=== PATIENT | female | born 1955 | race Caucasian/White ===

== ENCOUNTER → 2023-08-27 11:45 | Outpatient (REF) | payer MEDICARE, OTHER, SELFPAY ==
[2023-08-27 12:40] LABS: % Basophils 0.7 % (0-2); % Eosinophils 3.2 % (0-6); % Immature Granulocytes 0.4 % (0-0.5); % Lymphocytes 42.4 % (20.5-51.1); % Monocytes 8.4 % (1.7-9.3); % Neutrophils 44.9 % (42.2-75.2); Absolute Eosinophils 0.2 10^3/uL (0-0.7); Absolute Lymphocytes 2.3 10^3/uL (1.2-3.4); Absolute Monocytes 0.5 10^3/uL (0.1-0.6); Absolute Neutrophils 2.4 10^3/uL (1.4-6.5); Hematocrit 38.6 % (37.0-47.0); Hemoglobin 12.9 g/dL (12.0-16.0); Mean Corp Hgb Conc. 33.4 g/dL (33.0-37.0); Mean Corpuscular Hgb 30.2 pg (27.0-31.0); Mean Corpuscular Volume 90.4 fL (81.0-99.0); Nucleated Red Blood Cells % 0 %; Platelet Count 623 10^3/uL (130-400); Red Blood Cell Count 4.27 10^6/uL (4.20-5.40); Red Cell Dist. Width 12.1 % (11.5-14.5); White Blood Cell Count 5.4 10^3/uL (4.8-10.8)
[2023-08-27 12:54] LABS: ALT (SGPT) 60 U/L (0-35); AST (SGOT) 50 U/L (14-36); Albumin 4.1 g/dl (3.5-5.0); Alkaline Phosphatase 245 U/L (38-126); Blood Urea Nitrogen 13 mg/dl (7-17); Calcium 10.1 mg/dl (8.4-10.2); Carbon Dioxide 26 mmol/L (22-30); Chloride 103 mmol/L (98-107); Glucose 102 mg/dl (70-99); Potassium 5.2 mmol/L (3.5-5.1); Sodium 136 mmol/L (135-145); Total Bilirubin 0.4 mg/dl (0.2-1.3); Total Protein 7.2 g/dl (6.3-8.2); eGFR > 60.00
[2023-08-27 13:25] LABS: TSH Reflex To Free T4 < 0.02 uIU/ml (0.47-4.68)
[2023-08-27 13:54] LABS: Free T4 2.16 ng/dl (0.78-2.19)
== END ==
LOC: REG 11:45
PROVIDERS: ATTENDING PHYSICIAN Family Medicine
DX: E03.9 Hypothyroidism, unspecified (principal); R79.89 Other specified abnormal findings of blood chemistry; D64.9 Anemia, unspecified
CPT/HCPCS: 36415; 80053; 84439; 84443; 85025

== ENCOUNTER → 2023-09-08 07:23 | Outpatient (REF) | payer MEDICARE, OTHER, SELFPAY | LOC: RAD 07:23 | PROVIDERS: ATTENDING PHYSICIAN Surgery; FAMILY PHYSICIAN Internal Medicine | DX: K57.32 Diverticulitis of large intestine without perforation or abscess without bleeding (principal) | CPT/HCPCS: 74177; Q9967 ==

== ENCOUNTER → 2023-09-12 09:46 | Outpatient (REF) | payer MEDICARE, OTHER, SELFPAY ==
[2023-09-12 11:05] LABS: LDH 171 U/L (120-246)
[2023-09-12 11:47] LABS: TSH Reflex To Free T4 < 0.02 uIU/ml (0.47-4.68)
[2023-09-12 12:12] LABS: Free T4 3.69 ng/dl (0.78-2.19)
[2023-09-12 12:52] LABS: CEA 94.1 ng/ml
[2023-09-14 18:44] LABS: CA 125 7.7 U/mL (0-35)
[2023-09-14 18:49] LABS: AFP Male/Tumor Marker 2.97 ng/ml
[2023-09-14 21:40] LABS: Estriol 0.23 ng/mL
[2023-09-14 22:30] LABS: CA 19-9 2 U/mL (<=35)
[2023-09-14 22:39] LABS: HCG Male/Tumor Marker 3 IU/L (0-5)
== END ==
LOC: REG 09:46
PROVIDERS: ATTENDING PHYSICIAN Surgery; FAMILY PHYSICIAN Internal Medicine
DX: R19.00 Intra-abdominal and pelvic swelling, mass and lump, unspecified site (principal); E03.9 Hypothyroidism, unspecified; R97.8 Other abnormal tumor markers; C22.1 Intrahepatic bile duct carcinoma
CPT/HCPCS: 36415; 82105; 82378; 82677; 83615; 84439; 84443; 84702; 86301; 86304

== ENCOUNTER → 2023-09-23 07:16 | Outpatient (REF) | payer MEDICARE, OTHER, SELFPAY | LOC: MRI 07:16 | PROVIDERS: ATTENDING PHYSICIAN Surgery; FAMILY PHYSICIAN Internal Medicine | DX: R19.00 Intra-abdominal and pelvic swelling, mass and lump, unspecified site (principal) | CPT/HCPCS: 72197; A9575 ==

== ENCOUNTER → 2023-09-24 07:32 | Outpatient (REF) | payer MEDICARE, OTHER, SELFPAY | LOC: HWRAD 07:32 | PROVIDERS: ATTENDING PHYSICIAN Internal Medicine | DX: R93.5 Abnormal findings on diagnostic imaging of other abdominal regions, including retroperitoneum (principal); K57.92 Diverticulitis of intestine, part unspecified, without perforation or abscess without bleeding; N70.92 Oophoritis, unspecified | CPT/HCPCS: 76830; 76856 ==

== ENCOUNTER → 2023-10-05 06:37 | Day surgery (SDC) | payer MEDICARE, OTHER, SELFPAY | LOC: GI 06:37 | PROVIDERS: ATTENDING PHYSICIAN Surgery | DX: K57.30 Diverticulosis of large intestine without perforation or abscess without bleeding (principal); R93.3 Abnormal findings on diagnostic imaging of other parts of digestive tract; D49.0 Neoplasm of unspecified behavior of digestive system; K56.690 Other partial intestinal obstruction | CPT/HCPCS: 45380; 45381; 88305 ==

== ENCOUNTER → 2023-10-06 08:35 | Outpatient (REF) | payer MEDICARE, OTHER, SELFPAY | LOC: RAD 08:35 | PROVIDERS: ATTENDING PHYSICIAN Surgery; FAMILY PHYSICIAN Internal Medicine | DX: R19.00 Intra-abdominal and pelvic swelling, mass and lump, unspecified site (principal) | CPT/HCPCS: 71260; Q9967 ==

== ENCOUNTER → 2023-10-19 11:51 | Outpatient (REF) | payer MEDICARE, OTHER, SELFPAY ==
[2023-10-19 14:12] LABS: % Basophils 0.6 % (0-2); % Eosinophils 1.5 % (0-6); % Immature Granulocytes 0.5 % (0-0.5); % Lymphocytes 31.5 % (20.5-51.1); % Monocytes 6.8 % (1.7-9.3); % Neutrophils 59.1 % (42.2-75.2); Absolute Eosinophils 0.1 10^3/uL (0-0.7); Absolute Monocytes 0.4 10^3/uL (0.1-0.6); Absolute Neutrophils 3.7 10^3/uL (1.4-6.5); Hemoglobin 12.4 g/dL (12.0-16.0); Mean Corp Hgb Conc. 32.6 g/dL (33.0-37.0); Mean Platelet Volume 9.6 fL (7.4-10.4); Nucleated Red Blood Cells % 0 %; Platelet Count 344 10^3/uL (130-400); Red Blood Cell Count 4.27 10^6/uL (4.20-5.40); Red Cell Dist. Width 13.5 % (11.5-14.5); White Blood Cell Count 6.2 10^3/uL (4.8-10.8)
[2023-10-19 14:51] LABS: TSH Reflex To Free T4 7.94 uIU/ml (0.47-4.68)
[2023-10-19 15:20] LABS: Free T4 0.44 ng/dl (0.78-2.19)
[2023-10-19 15:38] LABS: ALT (SGPT) 22 U/L (0-35); AST (SGOT) 26 U/L (14-36); Albumin 4.5 g/dl (3.5-5.0); Alkaline Phosphatase 115 U/L (38-126); Blood Urea Nitrogen 14 mg/dl (7-17); Calcium 9.9 mg/dl (8.4-10.2); Carbon Dioxide 26 mmol/L (22-30); Chloride 102 mmol/L (98-107); Glucose 78 mg/dl (70-99); Potassium 4.8 mmol/L (3.5-5.1); Sodium 135 mmol/L (135-145); Total Bilirubin 0.2 mg/dl (0.2-1.3); Total Protein 7.2 g/dl (6.3-8.2); eGFR > 60.00
== END ==
LOC: REG 11:51
PROVIDERS: ATTENDING PHYSICIAN Internal Medicine
DX: R19.00 Intra-abdominal and pelvic swelling, mass and lump, unspecified site (principal); I10 Essential (primary) hypertension; F33.9 Major depressive disorder, recurrent, unspecified; E03.9 Hypothyroidism, unspecified
CPT/HCPCS: 36415; 80053; 84439; 84443; 85025

== ENCOUNTER 2023-10-21 06:05 | Inpatient (IN) | payer MEDICARE, OTHER, SELFPAY ==
[2023-10-21] VITALS (15 sets, daily range): BP systolic 67–131; BP diastolic 37–84
[2023-10-21] MEDS: CELEBREX 200 MG PO (06:50)
[2023-10-21] MEDS: TYLENOL 1000 MG PO ×2 (06:51→18:04)
[2023-10-21] MEDS: NORMOSOL-R 1000 IV ×2 (06:51→15:39)
[2023-10-21] MEDS: HEPARIN 5000 UNITS SC (06:51)
--- NOTE | 2023-10-21 07:09 | W.SUR.PREOP ---
Pre-Operative Surgical Note
-
I have examined this patient prior to the performance of the scheduled procedure.
The patient's condition is unchanged from the time of the current History and
Physical and the patient is able to undergo the scheduled procedure.
[2023-10-21] MEDS: NEURONTIN 300 MG PO (07:10)
--- NOTE | 2023-10-21 10:14 | OR.RPT ---
Operative Report
Operative Report
Pre-op Diagnosis: Right lower quadrant mass, Elevated CEA
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
Procedure: Robotic assisted total laparoscopic hysterectomy, bilateral salpingo-oophorectomy, pelvic washings, resection of right paracolic gutter, partial omentectomy
Primary Surgeon: Krishna Yu
Assisting Surgeons: JITENDRA Hill
Specimen: Uterus, cervix, bilateral tubes and ovaries, right paracolic gutter, pelvic washing
Cultures: None
Complications / Blood Loss: None
Procedure in detail: This patient is brought to the operating room with Dr. Brown Calix from colorectal surgery. Her history significant for presumed diagnosis of diverticulitis, back in July which was treated with IV antibiotics, she had
a persistent mass on imaging studies, colonoscopy was performed no obvious luminal lesions were noted. I had seen her in consultation at colorectal surgery request, tumor markers were suggestive of elevated CEA and normal CA125.
we brought her to the operating room today for definitive management and resection of the mass. Upon arrival she was placed in supine position, general anesthesia was administered she was intubated without any difficulty. She was placed in
lithotomy position using yellowfin stirrups and prepped on the abdomen perineum and vagina. Rome catheter was inserted for bladder drainage. Both arms were wrapped with foam and properly tucked along the patient's side head and shoulders and eyes
were protected. Using Reynolds retractor the cervix was visualized, anterior lip of the cervix was grasped with single-tooth tenaculum, the cervix was dilated and sounded to 6-1/2 cm. Uterine manipulator manager wind type with 3 cm CHANTELLE ring was placed
in the uterine cavity and the vaginal occluder balloon was insufflated. Attention was turned abdominally, Veress needle was inserted into the umbilicus and pneumoperitoneum was accomplished to pressure of 15 mmHg. 8 mm robotic ports were placed in
the left upper quadrant midline right mid abdomen and right lateral abdomen and an additional port was placed in left lower quadrant. XI robotic system was docked. Survey of the upper abdomen reveals liver diaphragms gallbladder spleen left
diaphragm to be within normal limits, there are some scattered subcentimeter mucinous implants throughout the peritoneal cavity most of this was resected as part of the procedures listed below. There is a mass that is likely arising from appendix
involving the mesentery of sigmoid colon these 2 structures are densely adherent to each other and will likely require resection of sigmoid colon as well as ileocecal region for complete resection. In addition to her implants along the right and
left paracolic gutters and also in the soft tissue of the adnexa adjacent to the ovaries. The ovaries themselves were unremarkable similar implants are also present in the pelvic peritoneum and the posterior cul-de-sac. Washings were performed and
collected.
Round ligaments were sealed and divided bilaterally, anterior and posterior leaves of the broad ligament were dissected open retroperitoneal spaces were opened and the course of the ureter was outlined above the pelvic peritoneum and below the
pelvic peritoneum. We created a window between IP ligament and ureter and both IP ligaments were sealed 3 times, clips were applied for additional security before it was cut tubes and ovaries were left attached to the uterus. Bladder flap was
sharply developed and advanced below the cervicovaginal junction. Uterine arteries were skeletonized. We sealed both uterine arteries and then divided them, circumferential incision was made over the CHANTELLE ring until the specimen was completely
detached and this was removed through the vagina without any difficulty. A long portion of left paracolic gutter was removed and submitted also for frozen section. We also removed a portion of the omentum and left it attached to the colon for
future removal as part of the initial set up for the surgery. I went ahead and closed the vaginal cuff using a 2�0 V-Loc suture starting from right and coming to the left and both corners were securely closed and uterosacral ligaments were
incorporated for support. Good hemostasis was present and all pedicles.
Frozen section of paraovarian tissue as well as right and left paracolic implants reveals mucinous adenocarcinoma suspected to be an compatible with a GI primary. I turned the case over to Dr. Calix who will perform the remainder of the surgery and
a separate dictation will be made by him. Counts of labs instruments and needle was correct x 2. I was present and scrubbed for entire procedure as dictated above.
--- NOTE | 2023-10-21 13:49 | W.IMMPOSTOP ---
Surgical Immed Post Op Note
-
Primary Surgeon: Brown Calix MD
Assisting Surgeon: Kevin Ng MD, DADA Mustafa
Pre-op Diagnosis: Right pelvic mass
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
Procedure Performed: Robotic converted to open resection of right pelvic mass with en bloc sigmoidectomy and appendectomy, right hemicolectomy, flexible sigmoidoscopy, tap block, bilateral ureterolysis, partial omentectomy, robotic total abdominal
hysterectomy with bilateral salpingo-oophorectomy, peritoneal biopsy with washings, by Dr. Krishna Michel (to be dictated separately)
Anesthesia Type: General
Specimen / Cultures: Left gutter peritoneum, total abdominal hysterectomy with bilateral salpingo-oophorectomy, pelvic mass en bloc with sigmoid and appendix, right colon and terminal ileum
Estimated Blood Loss: 75 mL
Complications: None
Operative Findings: Abdominal entry with Veress; explored the abdomen and identified multiple small mucinous peritoneal deposits on the anterior abdominal wall and pelvis, identified right pelvic mass sitting above the sacral promontory with
adhesions to the omentum and invasion into the proximal sigmoid and distal sigmoid as well as some adhesion to the right adnexa; placed 4 robotic ports from Hill's point diagonally to the RLQ with a right lateral coding assistant port and an additional
left lateral port; patient in [address] Yu proceeded with taking down the adhesions from the mass to the omentum as well as the right adnexa; the ovaries appeared normal with possible tumor deposits on the right ovary; he
proceeded with a KRISTY/BSO; he excised a flap of peritoneum from the left paracolic gutter with multiple tumor deposits and sent the uterus with ovaries and peritoneum for frozen; he also performed peritoneal washings of the pelvis and sent for
cytology; pathology stated this was most likely an appendiceal mucinous neoplasia, favors adenocarcinoma; Dr. Yu closed to the vaginal cuff and I took over the controls; I attempted to dissected the cecum and appendix from the retroperitoneal
structures but this was sucked down; I attempted to elevate the sigmoid but the mass was tethering it down; I attempted to dissect inferior to the appendix of the of the presacral plane but this was also very difficult; I attempted to staple across
the base of the appendix in order to free the mass, but the angle for the stapler was too cute, I then divided the terminal ileum about 3 cm proximal to the involvement of the terminal ileum as well as divided the proximal sigmoid about 5 cm
proximal to the sigmoid involvement; I was able to elevate the mass and staple across the base of the appendix; I again attempted to elevate the sigmoid with mask to dissect inferiorly; the mass was clearly involving the SHEILA and was densely adherent
to the sacral promontory; anesthesia alerted us that the patient's CO2 was elevated; we decreased desufflation to 10 which slightly improved the hypercarbia; I scored the peritoneum along the right pelvis to a point just distal to the rectosigmoid
junction; I attempted to score the peritoneum in the left pelvis; however there was a tumor deposits that was difficult to dissect off of the left ureter; at this point, I felt the safest decision would be to convert to open; I undocked the robot
and made a midline incision from 1 cm above the umbilicus to her prior Pfannenstiel incision; I was able to finish my mobilization of the rectosigmoid and stapled across the proximal rectum with the contour stapler blue load; I used the impact
LigaSure to dissect the mass off of the presacral plane avoiding injury to the presacral venous plexus; I came across the SHEILA with the impact about 4 to 5 cm distal to its takeoff; at this point the specimen was free and passed off; Dr. Pk Ng
joined the case and we mobilized the right colon and evaluated the right colon mesentery; there was palpable lymphadenopathy, therefore I proceeded with a formal right hemicolectomy; I performed a partial omentectomy to include multiple palpable
nodules; I took down the lateral attachments and the hepatocolic ligament; I also palpated I picked a point at the proximal transverse colon and stapled across; I used the LigaSure to serially divided the mesentery for a wide lymphadenectomy and
continued this to my prior transection point of the terminal ileum, dividing the ileocolic pedicle; this was passed off as specimen; I proceeded with a [id number] stapled ileocolic antiperistaltic anastomosis and a end-to-end stapled EEA
colorectal anastomosis; Dr. Ng performed the flexible sigmoidoscopy and the anastomosis was intact with a negative leak test and 2 intact donuts; the abdomen was irrigated with 3.5 L of warm saline and hemostasis was assured; I injected 30 cc of
0.25% Marcaine with dexamethasone for tap block; closed in the usual fashion
--- NOTE | 2023-10-21 14:14 | OR.RPT ---
Operative Report
Operative Report
DATE OF OPERATION: 10/21/2023
SURGEON: Brown Calix MD
PREOPERATIVE DIAGNOSIS: Right pelvic mass
POSTOPERATIVE DIAGNOSIS:
OPERATION: Robotic converted to open resection of right pelvic mass with en bloc sigmoidectomy and appendectomy, right hemicolectomy, flexible sigmoidoscopy, TAP block, partial omentectomy; robotic total abdominal hysterectomy with bilateral
salpingo-oophorectomy with peritoneal biopsy and washings by Dr. Michelle Yu (to be dictated separately)
ASSISTANTS:
1. Kevin Ng MD
2. DADA Mustafa
ANESTHESIA: Geta
ESTIMATED BLOOD LOSS: 75 mL
UOP: 500 mL
IVF: 3.3 L
FINDINGS:
1. Right pelvic mass adherent to omentum, terminal ileum, appendix, and sigmoid colon; bilateral adnexa without direct involvement, but evident mucinous deposits on the ovaries and fallopian tubes
2. 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
3. Unable to dissect the pelvic mass from the presacral fascia and left ureter robotically; converted to open
4. Palpable lymphadenopathy within the mesentery of the right colon; performed a formal right hemicolectomy with [id number] stapled anastomosis
5. Reconstruction with stapled colorectal EEA anastomosis; donuts intact, leak test negative, anastomosis intact on flexible sigmoidoscopy
SPECIMENS:
1. Left paracolic gutter peritoneum
2. Hysterectomy and bilateral salpingo-oophorectomy
3. Pelvic mass with en bloc sigmoidectomy and appendectomy
4. Right colon with terminal ileum
DRAINS: None
COMPLICATIONS: No immediate complications.
INDICATIONS: The patient is a 68-year-old female who was initially diagnosed with perforated diverticulitis, treated nonoperatively and was discharged. However, on follow-up imaging, the inflammation resolved and the collection appeared more like
a malignant mass on the right side of the pelvis. An MRI was done which showed that the mass seemed to originate from the sigmoid colon. A transvaginal ultrasound showed that the mass was involving the right ovary. Colonoscopy was performed
preoperatively which showed extrinsic compression and possible invasion at 2 areas of the sigmoid, no obvious colon masses were noted. After discussion with Dr. Michelle Yu, we agreed that the next best step is to proceed with an operation for both
diagnosis and resection of this mass, whether it is of gynecologic origin or colonic origin. The operation was discussed with the patient in detail, including the risks, benefits and alternatives. Risks described included, but not limited to,
bleeding, infection, anastomotic leak if an anastomosis is created, ureteral injury, bowel or solid organ injury, urinary or sexual dysfunction, inability to complete the operation, inability to completely resect the mass, possibility of resection
of more colon or bowel than initially anticipated, need for an ostomy, conversion to open and anesthetic risks. The patient understood and agreed to proceed.
PROCEDURE IN DETAIL: The patient was taken to the operating room and placed on the operating table in supine position. Sequential compression devices were placed bilaterally. General anesthesia was then induced and the patient was intubated without
complication. The patient was then placed in lithotomy position with the bilateral arms tucked. Dr. Yu and his neurosurgical physician assistant prepped the perineum and placed a Rome. Anesthesia placed an orogastric tube. Preoperative antibiotics were given. The
abdomen was then prepped and draped in a sterile fashion. A marking pen was used to michelle out the midline. A time-out was then performed verifying the correct patient, procedure, operative site, positioning, and special equipment.
An 8 mm incision at Hill's point was made with an 11 blade scalpel. A Veress needle was used to gain abdominal access. After 3 clicks, the insufflation was connected to the Veress needle and the opening pressure was noted to be greater than 8
mmHg. I attempted to replace the Veress needle twice without improvement in opening pressure. Dr. Yu then attempted Veress needle entry through the umbilicus, which showed an opening pressure less than 8 mmHg. The abdomen was then insufflated
to a pressure of 12 mmHg. An 8 mm robotic trocar was then inserted at Hill's point. The robotic camera was advanced and intra-abdominal placement was confirmed. The abdomen was examined. No injuries were noted from port entry or from the Veress
needle. Immediately evident was the large right pelvic mass with adhesions to the omentum, sigmoid and right lower quadrant. Small subcentimeter mucinous nodules scattered throughout the abdomen were noted, primarily on the peritoneum of the right
paracolic gutter, bilateral adnexa, peritoneum of the anterior pelvis and left paracolic gutter. No concerning lesions were noted on the surface of the liver. The remaining three 8mm robotic ports were placed under direct visualization in a
diagonal fashion from Hill's point to the right lower quadrant, as well as an 8mm assist port in the right lateral mid abdomen, taking care to avoid injury to the right epigastric vessels. The left upper quadrant port was changed to the air seal
port. Dr. Yu first took the console and started to free up some of the adhesions to the omentum and small bowel, as well as the uterus, ovaries and fallopian tubes. It was clear that the mass was not originating from the ovaries or fallopian
tubes, however, there were mucinous deposits on each. He proceeded with his hysterectomy with bilateral salpingo-oophorectomy. Both ureters were easily visible during this portion of the case and were kept safe. He also took a flap of peritoneum
from the left paracolic gutter, which included multiple mucinous deposits. He performed peritoneal washings for cytology. He then walked the specimens to pathology for frozen section.
I took the console at this time and started to evaluate the involvement of the colon. There were dense adhesions to the sigmoid colon at 2 locations. It was evident that I would need to perform a sigmoidectomy en bloc. The rectum appeared
uninvolved. The mass was socked to the pelvic brim and retroperitoneum, making it difficult to elevate. The cecum was then freed from its lateral and retroperitoneal attachments and the base of the appendix was identified. It was clear that the
appendix was involved in the mass as the appendix disappeared into the mass and was not easily freed. The first segment of the terminal ileum also appeared densely adherent to the mass, about 7 to 10 cm proximal to the ileocecal junction. The
remainder of the small bowel was free from the mass. 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 Dr. Yu took the controls and finished his portion of the case, which involved closing
the vaginal cuff.
I then took the controls and continued attempting to free up the mass en bloc. In order to elevate the mass, I attempted to perform an appendectomy by creating a hole in the mesoappendix, but when I attempted to pass the 60 mm robotic stapler, the
angle was too acute. I then stapled and divided the terminal ileum about 3 cm proximal to the involvement of the mass (about 12 cm proximal to the IC valve), using the blue load of the 60 mm robotic stapler. I then identified a spot on the sigmoid
colon that was about 5 cm proximal to the involvement of the mass. I stapled and divided the sigmoid colon at this point in an attempt to help mobilize the mass. At this point, it was mobile enough to perform my intended appendectomy, which I
performed using the blue load of the 60 mm robotic stapler. I again attempted to dissect inferior to the mass. It was clearly involving the distal SHEILA and was adherent to the fascia overlying the sacral promontory. Anesthesia notified me that the
patient's CO2 was elevated. We decreased to the insufflation to 10 mmHg which improved the hypercarbia. I scored the peritoneum along the right pelvis to a point just distal to the rectosigmoid. I attempted to score the peritoneum in the left
pelvis, however, there were multiple tumor deposits that were difficult to dissect away from the area. The left ureter was easily visualized due to Dr. Yu's previous dissection. There was 1 tumor deposit that was on top of the left ureter. I
attempted to dissect this tumor deposit off the left ureter but encountered a small amount of bleeding. At this point, I felt the safest decision would be to convert to open as this mass was very difficult to dissect inferiorly as well as the
patient's hypercarbia, forcing us to decrease our insufflation and making visualization more difficult. A lap pad was placed in the left pelvis where the small amount of bleeding was noted near the tumor deposit. The robotic instruments were
removed and the robot was undocked. The patient was leveled.
I made a midline incision from 1 cm above the umbilicus down to her Pfannenstiel scar from a previous surgery. I took this down to the level of the fascia. Hemostasis was checked and assured with electrocautery. The linea alba was scored and the
peritoneum was elevated and incised with Metzenbaum scissors. The fascia and peritoneum were then opened to the same length of the skin incision. A large Antwan wound retractor was placed. The patient was placed in Trendelenburg position. I
checked the small amount of bleeding from the tumor deposit in the left pelvis. The bleeding had stopped. I was able to retract the tumor deposit and easily dissect it off the left ureter without injury to the ureter. I was then able to elevate
the mass and using the impact LigaSure device, I was able to dissect inferiorly, ligating the attachments off the presacral plane, avoiding injury to the presacral venous plexus. I identified the SHEILA. I dissected this circumferentially and divided
this with the impact about 4 to 5 cm distal from its takeoff. I divided the remainder of the sigmoid mesentery and the specimen was now free. I passed this off for pathology. My partner, Dr. Ng, joined the case due to the level of complexity
and difficulty. We evaluated the operative field and the pelvis, and hemostasis was assured. We assessed the right colon. We divided the lateral attachments of the right colon in order to elevate it and inspected the mesentery. There was
palpable lymphadenopathy in the mesentery of the right colon. Therefore, I felt proceeding with a formal right hemicolectomy would be the best decision for the patient's long-term cancer care. I took the lateral attachments down along the right
colon and hepatic flexure, taking care to avoid injury to the liver. I then entered the lesser sac at the mid transverse colon and divided the gastrocolic ligament proximally to my previous dissection, completely freeing the right colon and hepatic
flexure. I bluntly freed up the colon mesentery from the retroperitoneum, avoiding injury to the kidney and ureter. At the recommendation of Dr. Yu, I performed a partial omentectomy to include any palpable or concerning nodules. I did this
with the LigaSure device. I then picked a point at the proximal transverse colon and stapled and divided at this point. I used the LigaSure to serially divide the mesentery for a wide lymphadenectomy and continued this to my prior transection
point of the terminal ileum. I identified the ileocolic pedicle during this part and this was divided with the LigaSure. I then passed off my right hemicolectomy specimen. I proceeded with a [id number] stapled ileocolic antiperistaltic
anastomosis. I used Allis clamps to grasp the antimesenteric corners of the staple lines and a curved James's to create a colotomy and enterotomy. I passed the HERLINDA 80 mm purple load stapler device and created my stapled common channel. The staple
line was evaluated and was hemostatic. The common enterotomy was aligned using Allis clamps and stapled with a TA stapler. The staple line was evaluated and was hemostatic. I then turned my attention to the sigmoid colon. Dr. Ng passed up
rectal EEA sizers, which passed easily. The sigmoid staple line was then excised using electrocautery and an EEA anvil was secured using a Prolene in a pursestring fashion. Dr. Ng then passed the EEA stapler transanally and extended the post
through the middle of the rectal staple line. I mated the sigmoid with anvil to the EEA stapler. There was no tension and the mesentery was not twisted. Dr. Ng then closed the stapler for 1 minute and fired, holding for 15 seconds. The EEA
was removed and both donuts were intact. A leak test was then done by filling the pelvis with saline and clamping proximal to the anastomosis with fingers. The flexible sigmoidoscope was passed transanally and the anastomosis was insufflated. No
bubbles were noted. The anastomosis appeared healthy and intact on sigmoidoscopy. The abdomen was then irrigated with 3.5 L of warm saline and the entire operative field was evaluated. Hemostasis was assured. I injected 30 mL of 0.25% Marcaine
with dexamethasone bilaterally in the transversus abdominis plane surrounding the midline incision. I reapproximated the fascia using #1 Prolene, starting at the corners and closing in a running fashion. The subcutaneous tissues were irrigated and
suctioned. The midline incision and port sites were closed with a skin stapler.
At this point, the procedure was complete. The patient was awoken and extubated without complication. All needle, sponge and instrument counts were reported as correct. The patient tolerated the procedure well and was transferred to the recovery
room in stable condition.
Of note, Kevin Ng MD, neurosurgical physician assistant, was necessary during this procedure for traction, countertraction, and exploratory purposes. I was present for the entire duration of the case.
DICTATED BY: Brown Calix MD
[2023-10-21 14:49] LABS: Glucose - Point of Care 156 mg/dl (70-99)
[2023-10-21] MEDS: TORADOL 15 MG IV ×2 (16:16→20:23)
[2023-10-21] MEDS: DILAUDID 0.25 MG IV (18:03)
--- NOTE | 2023-10-21 20:25 | PTCARENOTE ---
Received patient from PACU around 1600 via bed in stable condition. Patient was sleepy but arousable. Son at bedside. Patient and family oriented to room. Call wilson in reach.
[2023-10-22] VITALS (7 sets, daily range): BP systolic 94–123; BP diastolic 54–75; PULSE 86; O2SAT 95; BMI 27.0
[2023-10-22] MEDS: TYLENOL PO
[2023-10-22] MEDS: DILAUDID 0.5 MG IV ×2 (02:15→06:56)
[2023-10-22] MEDS: TORADOL 15 MG IV ×4 (03:47→20:06)
[2023-10-22 04:52] LABS: % Basophils 0.3 % (0-2); % Immature Granulocytes 0.3 % (0-0.5); % Lymphocytes 15.7 % (20.5-51.1); % Neutrophils 78.7 % (42.2-75.2); Absolute Monocytes 0.3 10^3/uL (0.1-0.6); Absolute Neutrophils 5.1 10^3/uL (1.4-6.5); Hematocrit 29.6 % (37.0-47.0); Hemoglobin 10.2 g/dL (12.0-16.0); Mean Corp Hgb Conc. 34.5 g/dL (33.0-37.0); Mean Corpuscular Hgb 29.4 pg (27.0-31.0); Mean Corpuscular Volume 85.3 fL (81.0-99.0); Mean Platelet Volume 9.2 fL (7.4-10.4); Nucleated Red Blood Cells % 0 %; Platelet Count 305 10^3/uL (130-400); Red Blood Cell Count 3.47 10^6/uL (4.20-5.40); White Blood Cell Count 6.5 10^3/uL (4.8-10.8)
[2023-10-22 05:26] LABS: Blood Urea Nitrogen 6 mg/dl (7-17); Calcium 7.8 mg/dl (8.4-10.2); Carbon Dioxide 23 mmol/L (22-30); Chloride 99 mmol/L (98-107); Estimated Creatinine Clearance 78 ml/min; Glucose 150 mg/dl (70-99); Magnesium 2.4 mg/dl (1.6-2.3); Potassium 3.4 mmol/L (3.5-5.1); Sodium 133 mmol/L (135-145); eGFR > 60.00
[2023-10-22] MEDS: SYNTHROID 125 MCG PO (06:12)
[2023-10-22] MEDS: TYLENOL 1000 MG PO ×3 (06:12→17:48)
[2023-10-22] MEDS: COZAAR PO (08:14)
[2023-10-22] MEDS: EFFEXOR XR 150 MG PO (08:14)
[2023-10-22] MEDS: ENTEREG 12 MG PO ×2 (08:14→19:56)
[2023-10-22] MEDS: DILAUDID 1 MG IV ×4 (09:34→19:56)
--- NOTE | 2023-10-22 10:13 | W.PN.CRS1 ---
Today's Communication / Plan
-
Increased pain medication
Fulls
DC Rome
Lovenox
Assessment/Plan
-
POD#1 Robotic converted to open resection of right pelvic mass with en bloc sigmoidectomy and appendectomy, right hemicolectomy, flexible sigmoidoscopy, tap block, bilateral ureterolysis, partial omentectomy, robotic total abdominal hysterectomy
with bilateral salpingo-oophorectomy, peritoneal biopsy with washings, by Dr. Krishna Michel (to be dictated separately)
1. Hypotensive postop but improved. Afebrile.
2. Potassium 3.4, hypokalemic. Will replete with 20 mEq potassium.
3. On a clear liquid diet. Advance diet to full's.
4. Out of bed as tolerated.
5. Start Lovenox tonight for DVT prophylaxis. Teds and SCDs in place.
6. OR pathology pending.
7. Increase Dilaudid IV. On Toradol and Tylenol standing. If she still is in pain, will consider DYE AND CHEMICAL COORDINATOR.
8. Discontinue Rome.
Subjective Data
Procedure
10/21/23- Robotic converted to open resection of right pelvic mass with en bloc sigmoidectomy and appendectomy, right hemicolectomy, flexible sigmoidoscopy, tap block, bilateral ureterolysis, partial omentectomy, robotic total abdominal hysterectomy
with bilateral salpingo-oophorectomy, peritoneal biopsy with washings, by Dr. Krishna Michel (to be dictated separately)
Subjective Data
Date of Service: October 22, 2023
Patient states she was in a lot of pain last night. She has no gas or bowel movements yet. She has been drinking clears. She has not been out of bed yet this morning.
Objective Data
-
Vital Signs
Temp Pulse Resp BP Pulse Ox
99.4 F 77 17 100/55 98
10/22/23 08:00 10/22/23 08:00 10/22/23 08:00 10/22/23 08:14 10/22/23 08:00
Intake & Output
10/21/23 10/22/23 10/23/23
06:59 06:59 06:59
Intake Total 1989
Output Total 1020 / 1020
Balance 970 / 970
Intake:
Oral fluids 480 / 480
IV fluids (Total) 1510 / 1510
Norm 100 / 100
Normosol-R 1,000 ml @ 50 mls/hr 75 / 75
IV .Q20H JOSE Rx#:[id number]
Output:
Urine, Rome 1020 / 1020
Other:
Number of unmeasured liquid
stools
Rectum 1
Lab Results
10/22/23 04:26
10/22/23 04:26
Physical Exam
-
General: No Acute Distress and AOx3
Abdomen: Soft, Non Distended and Non Tender
Incision: Clear, Dry, Intact
--- NOTE | 2023-10-22 10:25 | W.PN.ONC ---
Documented by User: Brant Garcia PA-C 10/22/23 10:34
Impression
Impression
recovering well from surgery
Plan
Plan
follow colorectal surgeon
Subjective/Objective
Subjective/Objective
Post op day 1 only complaints is pain no SOB nausea vomiting able to tolerate liquids
no vaginal bleeding vitals stable incision dry
Vital Signs:
Vital Signs
Temp Pulse Resp BP Pulse Ox
99.4 F 77 17 100/55 98
10/22/23 08:00 10/22/23 08:00 10/22/23 08:00 10/22/23 08:14 10/22/23 08:00
Lab Results:
Laboratory Data
WBC 6.5 10^3/uL (4.8-10.8) 10/22/23 04:26
Hgb 10.2 g/dL (12.0-16.0) L 10/22/23 04:26
Plt Count 305 10^3/uL (130-400) 10/22/23 04:26
eGFR > 60.00 10/22/23 04:26

Documented by User: Krishna Yu MD 10/22/23 17:02
Today's Communication / Plan
-
I have repeated the exam, reviewed findings and agree with presley.
[2023-10-22] MEDS: NORMOSOL-R 1000 IV (10:27)
[2023-10-22] MEDS: KCL 160 MEQ IV (10:46)
--- NOTE | 2023-10-22 12:01 | CM ---
Reviewed the chart notes and spoke with the patient at the bedside. The patient is s/p Robotic assisted total laparoscopic hysterectomy, bilateral salpingo-oophorectomy, pelvic washings, resection of right paracolic gutter, partial omentectomy.
The patient resides alone in a first floor apartment with two steps to enter. The patient reports no DME/VN/SNF in the past. The patient confirmed her pharmacy of choice is the [facility] [address] [place]. CM continues to be available to patient/family
and is monitoring medical plan for needs at discharge.
Plan: Discharge to home when medically stable. No anticipated needs identified at this time.
--- NOTE | 2023-10-22 14:37 | CON.ONC ---
Impression
Impression
Pelvic mass s/p robotic to open surgery with Dr. Yu
Acute post-operative pain
Unintentional weight loss ~10 lbs
Hypotension
Plan
Plan
POD#1 Robotic converted to open resection of right pelvic mass with en bloc sigmoidectomy and appendectomy, right hemicolectomy, flexible sigmoidoscopy, tap block, bilateral ureterolysis, partial omentectomy, robotic total abdominal hysterectomy
with bilateral salpingo-oophorectomy, peritoneal biopsy with washings
Follow CBC with diff daily
Pain management
Supportive care
OOB activity encouraged
Diet per colorectal surgery
Lovenox for DVT prophylaxis
Await pathology
[facility] notified of patient's clinical status.
Follow up with Dr. Sol to be arranged.
Patient History
History of Present Illness
Sangeeta Fenton is a 68 year old female known to Dr. Yu. In July 2023, she presented to the ER with complaints of abdominal pain x5 days, night sweats, unintentional weight loss of 15 lbs, and nausea. Imaging at the time showed a possible
abscess in the sigmoid colon due to acute diverticulitis which was not accessible to drain in IR. She was treated with IV antibiotics and discharged home with follow up imaging. Imaging two weeks later showed the inflammation surrounding the
questionable mass had subsided and the mass was thought to be possible ovarian or colon neoplasm measuring 5cm. She met with Dr. Yu in the office for consultation. She is currently POD#1 robotic converted to open resection of right pelvic mass
with en bloc sigmoidectomy and appendectomy, right hemicolectomy, flexible sigmoidoscopy, tap block, bilateral ureterolysis, partial omentectomy, robotic total abdominal hysterectomy with bilateral salpingo-oophorectomy, peritoneal biopsy with
washings. EBL: min.
Past-Medical/Surgical History
Diverticulosis/diverticulitis
Hx colon polyps
Hypertension
Hypothyroidism
Depression
Osteoarthritis
Former smoker (x 7 years; quit 1985)
Weekly ETOH 2-3 beers
Meniscus repair
Vein stripping
Patient Medication
�Medication �Instructions �Recorded �Confirmed �Last Taken �Type
venlafaxine 150 mg 150 mg PO DAILY Mental 12/07/19 10/21/23 10/20/23 05:00 History
capsule,extended release 24 hr Health/Anxiety
(Effexor XR)
losartan 25 mg tablet 25 mg PO DAILY Blood Pressure 08/17/23 10/21/23 10/20/23 05:00 History
erythromycin 500 mg tablet 500 mg PO PRE OP 10/20/23 10/21/23 10/20/23 22:00 History
levothyroxine 125 mcg tablet 125 mcg PO DAILY hypothyroidism 10/20/23 10/21/23 10/20/23 05:00 History
neomycin 500 mg tablet 1 g PO PRE OP 10/20/23 10/21/23 10/20/23 22:00 History
sodium sul 1.479 gram-potas ch 0 tab PO PRE OP 10/20/23 10/21/23 10/20/23 21:00 History
0.188 gram-magnes sul 0.225 gram
tablet (Sutab)
Active Medications
Generic Name Dose Route Start Last Admin
Trade Name Freq PRN Reason Stop Dose Admin
Acetaminophen 1,000 mg 10/21/23 18:00 10/22/23 11:58
Acetaminophen 500 Mg Tablet PO 11/18/23 17:59 1,000 mg
Q6 JOSE Administration
Alvimopan 12 mg 10/22/23 08:00 10/22/23 08:14
Alvimopan (Entereg) 12 Mg Capsule PO 10/28/23 20:01 12 mg
BID JOSE Administration
Enoxaparin Sodium 40 mg 10/22/23 18:00
Enoxaparin Sodium 40 Mg/0.4 Ml Syringe SC 11/19/23 17:59
QPM JOSE
Hydromorphone HCl 0.5 mg 10/22/23 09:30
Hydromorphone 0.5 Mg/0.5 Ml Syringe IV 11/04/23 09:29
Q4HPRN PRN
moderate pain
Hydromorphone HCl 1 mg 10/22/23 09:30 10/22/23 11:58
Hydromorphone 1 Mg/Ml Carpuject IV 11/05/23 09:29 1 mg
Q2HPRN PRN Administration
severe pain
Parenteral Electrolytes 1,000 mls @ 50 mls/hr 10/21/23 14:15 10/22/23 10:27
Normosol-R IV 1,000 mls
.Q20H JOSE Administration
Ketorolac Tromethamine 15 mg 10/21/23 15:00 10/22/23 08:13
Ketorolac 15 Mg/Ml Injection IV 10/26/23 14:59 15 mg
Q6H JOSE Administration
Levothyroxine Sodium 125 mcg 10/22/23 07:00 10/22/23 06:12
Levothyroxine 125 Mcg Tablet PO 11/19/23 06:59 125 mcg
DAILY AT 0700 JOSE Administration
Losartan Potassium 25 mg 10/22/23 08:00 10/22/23 08:14
Losartan 25 Mg Tablet PO 11/19/23 07:59 Not Given
DAILY JOSE
Ondansetron HCl 4 mg 10/21/23 14:17
Ondansetron 4 Mg/2 Ml Vial IV 11/18/23 14:16
Q6HPRN PRN
nausea/vomiting
Sodium Chloride 0 flush 10/21/23 06:00
Sodium Chloride 0.9% (Flush) Syringe IV 11/18/23 05:59
PER PROTOCOL JOSE
Venlafaxine HCl 150 mg 10/22/23 08:00 10/22/23 08:14
Venlafaxine 150 Mg Extended Release Capsule PO 11/19/23 07:59 150 mg
DAILY JOSE Administration
Review of Systems
-
History Source: Patient, Physician, Coordinated Provider and Records
Constitutional: Reports Weight Loss
EENT: Reports No Symptoms
Respiratory: Reports No Symptoms
Cardiac: Reports No Symptoms
GI: Reports Abdominal Pain
Breast: Reports N/A
: Reports No Symptoms
Musculoskeletal: Reports No Symptoms
Skin: Reports No Symptoms
Neuro: Reports No Symptoms
Endocrine: Reports No Symptoms
Hematologic/Lymphatic: Reports No Symptoms
Allergy / Immunology: Reports No Symptoms
Psych: Reports No Symptoms
Physical Exam
-
Patient is resting comfortably in bed. She states she just received IV pain medication and her pain is better controlled. She denies N/V. she is belching, no flatus. She has not yet been OOB as of 929 this morning during evaluation.
General: Well Developed, Well Nourished, No Apparent Distress, Comfortable and Conversant
HEENT: Negative Jaundice
Cardiology: S1 and S2
Pulmonary: Clear
GI: Other (hypoactive bowel sounds, midline incision with aquacell dressing CDI, old drainage. lap sites x4, small areas of ecchymosis, no drainage.)
Genito-Urinary: [place] (clear yellow urine)
Musculoskeletal: No Edema
Extremities: Pulses Present
Neurology: Non Focal
Skin: Warm and Dry
Psych: Calm
Labs
Lab Results
WBC 6.5 10^3/uL (4.8-10.8) 10/22/23 04:26
RBC 3.47 10^6/uL (4.20-5.40) L 10/22/23 04:26
Hgb 10.2 g/dL (12.0-16.0) L 10/22/23 04:26
Hct 29.6 % (37.0-47.0) L 10/22/23 04:26
MCV 85.3 fL (81.0-99.0) 10/22/23 04:26
MCH 29.4 pg (27.0-31.0) 10/22/23 04:26
MCHC 34.5 g/dL (33.0-37.0) 10/22/23 04:26
RDW 14.0 % (11.5-14.5) 10/22/23 04:26
Plt Count 305 10^3/uL (130-400) 10/22/23 04:26
MPV 9.2 fL (7.4-10.4) 10/22/23 04:26
Abs Immat Gran (auto) 0.0 10^3/uL (0-0.05) 10/22/23 04:26
Absolute Neuts (auto) 5.1 10^3/uL (1.4-6.5) 10/22/23 04:26
Absolute Lymphs (auto) 1.0 10^3/uL (1.2-3.4) L 10/22/23 04:26
Absolute Monos (auto) 0.3 10^3/uL (0.1-0.6) 10/22/23 04:26
Absolute Eos (auto) 0.0 10^3/uL (0-0.7) 10/22/23 04:26
Absolute Basos (auto) 0.0 10^3/uL (0-0.2) 10/22/23 04:26
Immature Gran % 0.3 % (0-0.5) 10/22/23 04:26
Neutrophils % 78.7 % (42.2-75.2) H 10/22/23 04:26
Lymphocytes % 15.7 % (20.5-51.1) L 10/22/23 04:26
Monocytes % 5.0 % (1.7-9.3) 10/22/23 04:26
Eosinophils % 0.0 % (0-6) 10/22/23 04:26
Basophils % 0.3 % (0-2) 10/22/23 04:26
Creatinine 0.6 mg/dL (0.6-1.0) 10/22/23 04:26
Vital Signs
Vital Signs
Temp Pulse Resp BP Pulse Ox
99.2 F 82 17 94/54 94
10/22/23 12:00 10/22/23 12:00 10/22/23 12:00 10/22/23 12:00 10/22/23 12:00
--- NOTE | 2023-10-22 16:57 | W.PN.ONC2 ---
Today's Communication / Plan
-
as above
Impression
Impression
Pelvic mass s/p robotic to open surgery with Dr. Yu
Patient is recovering well today, labs are reviewed and are normal. I discussed in detail operative findings and procedures performed and the necessity for conversion to laparotomy. Patient does understand that she will require postoperative
adjuvant chemotherapy once fully recovered.
Plan
Plan
POD#1 Robotic converted to open resection of right pelvic mass with en bloc sigmoidectomy and appendectomy, right hemicolectomy, flexible sigmoidoscopy, tap block, bilateral ureterolysis, partial omentectomy, robotic total abdominal hysterectomy
with bilateral salpingo-oophorectomy, peritoneal biopsy with washings
Follow CBC with diff daily
Pain management
Supportive care
OOB activity encouraged
Diet per colorectal surgery
Lovenox for DVT prophylaxis
Await pathology
Subjective/Objective
Subjective
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 Patient experienced significant pain overnight, pain is alleviated
better with increased dose of Dilaudid. She has had clear liquids and tolerated it okay. She is awaiting a voiding trial after the Rome catheter was removed around 1 PM
Vital Signs:
Vital Signs
Temp Pulse Resp BP Pulse Ox
98.9 F 84 17 121/75 94
10/22/23 16:30 10/22/23 16:30 10/22/23 16:30 10/22/23 16:30 10/22/23 16:30
Lab Results:
Laboratory Data
WBC 6.5 10^3/uL (4.8-10.8) 10/22/23 04:26
Hgb 10.2 g/dL (12.0-16.0) L 10/22/23 04:26
Plt Count 305 10^3/uL (130-400) 10/22/23 04:26
eGFR > 60.00 10/22/23 04:26
Physical Exam
Cardiology: Normal Sinus Rhythm
GI: Soft, Normal Bowel Sounds and Other (Incision with dressing applied, small amount of ecchymosis)
Extremities: Pulses Present and No C/C/E
Orders
Orders
Advance diet as tolerated per colorectal surgery
[2023-10-22] MEDS: LOVENOX 40 MG SC (17:48)
[2023-10-22] MEDS: PROTONIX IV 40 MG IV (21:02)
[2023-10-22] MEDS: NSS (PRESERVATIVE FREE) 10 ML IV (21:02)
[2023-10-23] MEDS: TYLENOL 1000 MG PO ×4 (00:05→18:03)
[2023-10-23] MEDS: DILAUDID 0.5 MG IV (00:13)
[2023-10-23 03:30] VITALS: BP 120/74
[2023-10-23] MEDS: TORADOL 15 MG IV ×4 (03:33→21:03)
[2023-10-23 06:00] VITALS: BMI 27.5
[2023-10-23] MEDS: SYNTHROID 125 MCG PO (06:10)
[2023-10-23 06:38] LABS: Blood Urea Nitrogen 7 mg/dl (7-17); Calcium 8.4 mg/dl (8.4-10.2); Carbon Dioxide 28 mmol/L (22-30); Chloride 101 mmol/L (98-107); Estimated Creatinine Clearance 88 ml/min; Glucose 92 mg/dl (70-99); Potassium 4.1 mmol/L (3.5-5.1); Sodium 133 mmol/L (135-145); eGFR > 60.00
[2023-10-23] MEDS: DILAUDID 1 MG IV ×4 (07:17→21:04)
[2023-10-23] MEDS: FLUSH (NSS) 2 FLUSH IV ×3 (07:18→14:47)
[2023-10-23 07:41] VITALS: BP 104/76
[2023-10-23] MEDS: ENTEREG 12 MG PO (09:20)
[2023-10-23] MEDS: EFFEXOR XR 150 MG PO (09:20)
[2023-10-23] MEDS: COZAAR PO (09:20)
--- NOTE | 2023-10-23 09:55 | W.PN.CRS1 ---
Today's Communication / Plan
-
Low residue
Oxycodone
Assessment/Plan
-
POD#2 Robotic converted to open resection of right pelvic mass with en bloc sigmoidectomy and appendectomy, right hemicolectomy, flexible sigmoidoscopy, tap block, bilateral ureterolysis, partial omentectomy, robotic total abdominal hysterectomy
with bilateral salpingo-oophorectomy, peritoneal biopsy with washings, by Dr. Krishna Michel (to be dictated separately)
1. Vitals normal.
2. Electrolytes are normal today.
3. Advance diet to low residue.
4. Out of bed as tolerated.
5. Lovenox for DVT prophylaxis. Teds and SCDs in place.
6. OR pathology pending.
7. Will add oxycodone p.o. as needed. Continue Tylenol and Toradol standing, Dilaudid IV as needed.
8. Wound care: Continue Aquacel dressing today. Tomorrow remove dressing and will remove 50% of weeks. The rest of the madhu will come out in 2 days.
Subjective Data
Procedure
10/21/23- Robotic converted to open resection of right pelvic mass with en bloc sigmoidectomy and appendectomy, right hemicolectomy, flexible sigmoidoscopy, tap block, bilateral ureterolysis, partial omentectomy, robotic total abdominal hysterectomy
with bilateral salpingo-oophorectomy, peritoneal biopsy with washings, by Dr. Krishna Michel (to be dictated separately)
Subjective Data
Date of Service: October 23, 2023
Patient states she did not sleep well. She is walking the halls. She was urinating without difficulty. She has had flatus but no bowel movements.
Objective Data
-
Vital Signs
Temp Pulse Resp BP Pulse Ox
98.2 F 81 17 104/76 93
10/23/23 07:41 10/23/23 07:41 10/23/23 07:41 10/23/23 09:20 10/23/23 07:41
Intake & Output
10/22/23 10/23/23 10/24/23
06:59 06:59 06:59
Intake Total 1989 1920 / 192
Output Total 1020 / 1020 500 / 500
Balance 970 / 970 1420 / 1420
Intake:
Oral fluids 480 / 480 1260 / 1260
IV fluids (Total) 1510 / 1510 500 / 500
Norm 100 / 100
Normosol-R 1,000 ml @ 50 mls/hr 75 / 75
IV .Q20H JOSE Rx#:[id number]
IV piggybacks 160 / 160
Output:
Urine, [place] 1020 / 1020 400 / 400
Urine, Voided 100 / 100
Other:
Number of approximated SMALL 1
amounts of urine
Number of approximated MODERATE 1
amounts of urine
Number of unmeasured liquid
stools
Rectum 1
Lab Results
10/22/23 04:26
10/23/23 05:06
Physical Exam
-
General: No Acute Distress and AOx3
Abdomen: Soft, Non Distended and Tender (Around incision)
Skin: Warm and Dry
Incision: Clear, Dry, Intact
[2023-10-23] MEDS: ROXICODONE 10 MG PO (12:45)
--- NOTE | 2023-10-23 12:50 | W.PN.ONC2 ---
Today's Communication / Plan
-
We are scheduling outpt f/u to review path.
Impression
Impression
Pelvic mass s/p robotic to open surgery with Dr. Yu
Plan
Plan
POD#2 Robotic converted to open resection of right pelvic mass with en bloc sigmoidectomy and appendectomy, right hemicolectomy, flexible sigmoidoscopy, tap block, bilateral ureterolysis, partial omentectomy, robotic total abdominal hysterectomy
with bilateral salpingo-oophorectomy, peritoneal biopsy with washings
Patient is recovering well today, labs are reviewed and are normal.
Patient does understand that she will require postoperative adjuvant chemotherapy once fully recovered:
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
- if Automatic Lathe Tender primary then carbo/Taxol.
Briefly discussed schedule and side effects associated with each of these regimens
Subjective/Objective
Chief Complaint
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
Subjective
Feels well, pain controlled following IV dilaudid this morning. Has not yet tried oxycodone PO. Has questions about what chemo will likely look like for her.
Vital Signs:
Vital Signs
Temp Pulse Resp BP Pulse Ox
98.2 F 81 17 104/76 93
10/23/23 07:41 10/23/23 07:41 10/23/23 07:41 10/23/23 09:20 10/23/23 09:17
Lab Results:
Laboratory Data
WBC 6.5 10^3/uL (4.8-10.8) 10/22/23 04:26
Hgb 10.2 g/dL (12.0-16.0) L 10/22/23 04:26
Plt Count 305 10^3/uL (130-400) 10/22/23 04:26
eGFR > 60.00 10/23/23 05:06
Physical Exam
HEENT: No Jaundice or Moist Mucous Membranes
Cardiology: Normal Sinus Rhythm, S1 and S2
Pulmonary: Clear; No Wheezes
GI: Soft
Extremities: Pulses Present and No C/C/E
Neuro: Non Focal
Review of Systems
Review of Systems
Constitutional: Reports Fatigue; Denies Fever
Head: Denies Sore Throat
Respiratory: Denies Dyspnea or Cough
Cardiovascular: Denies Chest Pain or Palpitations
Gastrointestinal: Denies Nausea/Vomiting or Diarrhea
Genitourinary: Denies Hematuria
Skin: Denies Rash or Pruritis
Neurological: Denies Headache or Numbness
Psychiatric: Reports Insomnia; Denies Depression
Hem/Lymphatic: Denies Easy Bruising or Night Sweats
Orders
Orders
Orders From Last 24 Hours
10/24/23 06:00
CBC/With Diff [Complete Blood Count/With Diff] IN AM
[2023-10-23 13:45] VITALS: BP 122/74; PULSE 81; O2SAT 93
[2023-10-23] MEDS: ZOFRAN 4 MG IV ×2 (14:46→21:04)
[2023-10-23 15:29] VITALS: BP 128/79
--- NOTE | 2023-10-23 15:32 | CM ---
Reviewed the chart notes and spoke with the patient at the bedside. IMM signed and placed on the chart. CM continues to be available to patient/family and is monitoring medical plan for needs at discharge.
Plan: Discharge to home when medically stable.
[2023-10-23] MEDS: LOVENOX 40 MG SC (18:02)
[2023-10-23] MEDS: ENTEREG PO ×2 (21:03→21:12)
[2023-10-23 23:20] VITALS: BP 123/83
[2023-10-24] MEDS: TYLENOL PO ×2 (00:08→12:25)
--- NOTE | 2023-10-24 00:39 | PTCARENOTE ---
patient rang call light from her bathroom, upon entering patient found to have vomited large amount of yellow/green liquid on her bathroom floor, and then again another large amount into basin. patient states she still feels a little nauseous even
after vomiting. patient's abdomen soft, tender and bowel sounds present in all quads. patient continues to state she is passing flatus but no BM yet. patient states she tolerated her diet until Thursday afternoon when she took 10 lyndsay. she states she
hasn't felt good since time of that medication.
[2023-10-24] MEDS: TORADOL 15 MG IV ×4 (03:13→20:42)
[2023-10-24 06:00] VITALS: BMI 26.5
--- NOTE | 2023-10-24 06:17 | PTCARENOTE ---
states she feels better, no nausea at the moment but is scared to take any oral medication at this time. she would like to hold off a couple hours before trying to take her scheduled tylenol or synthroid. this RN will pass along to dayshift RN.
[2023-10-24 07:05] LABS: % Basophils 0.3 % (0-2); % Eosinophils 2.9 % (0-6); % Immature Granulocytes 0.2 % (0-0.5); % Lymphocytes 14.9 % (20.5-51.1); % Monocytes 3.4 % (1.7-9.3); % Neutrophils 78.3 % (42.2-75.2); Absolute Eosinophils 0.2 10^3/uL (0-0.7); Absolute Lymphocytes 0.9 10^3/uL (1.2-3.4); Absolute Monocytes 0.2 10^3/uL (0.1-0.6); Absolute Neutrophils 4.6 10^3/uL (1.4-6.5); Hematocrit 32.9 % (37.0-47.0); Mean Corp Hgb Conc. 33.4 g/dL (33.0-37.0); Mean Corpuscular Hgb 29.5 pg (27.0-31.0); Mean Corpuscular Volume 88.2 fL (81.0-99.0); Mean Platelet Volume 9.1 fL (7.4-10.4); Nucleated Red Blood Cells % 0 %; Platelet Count 334 10^3/uL (130-400); Red Blood Cell Count 3.73 10^6/uL (4.20-5.40); Red Cell Dist. Width 13.8 % (11.5-14.5); White Blood Cell Count 5.9 10^3/uL (4.8-10.8)
[2023-10-24 07:45] VITALS: BP 127/81
[2023-10-24] MEDS: ZOFRAN 4 MG IV (07:45)
[2023-10-24] MEDS: FLUSH (NSS) 1 FLUSH IV (07:45)
[2023-10-24] MEDS: LR 1000 IV ×2 (08:48→20:41)
[2023-10-24] MEDS: ATIVAN 0.5 MG IV (11:12)
[2023-10-24] MEDS: NSS (PRESERVATIVE FREE) 0.25 ML IV (11:14)
[2023-10-24] MEDS: OFIRMEV 100 IV ×3 (12:32→23:52)
--- NOTE | 2023-10-24 15:06 | W.PN.CRS1 ---
Addendum entered and electronically signed by Nic Vaca MD 10/24/23 15:17:
I saw and examined the patient.
The Sweatband Perforator's note was reviewed and I agree with the note.
Comment: vomiting overnight, nausea improved now. Passing minimal flatus. Anxiety and pain control are ongoing issues. Exam approp, aquacel taken down and 1/2 madhu removed, wound well appearing without sings of infection. Cont NPO for today,
restart IVF, sips/chips OK. Ativan added for anxiety. Concern for developing post-op ileus, will continue to monitor.
Original Note:
Today's Communication / Plan
-
Keep NPO and start IVF
Dressing changed
Assessment/Plan
-
68-year-old female with PMH of HTN, hypothyroid, depression/anxiety and right pelvic mass of unknown etiology, presented this admission for elective surgery
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
AFVSS
Passing some flatus but with n/v overnight, still with nausea. Bilious emesis. Suspect ileus.
--NPO except ice chips/sips for comfort. May need NGT if vomiting recurs
� Pain control, continue Tylenol (changed to IV) and Toradol ATC; continue IV Dilaudid as needed, continue Entereg
--Ativan IV 0.5mg prn q8h anxiety
�Continue DVT PPx with Lovenox/SCD's while in bed
� OOB/IS
--IVF with LR at 100ml/hr
--Trend labs
�Took down Aquacel and removed half of the Telfa madhu, will remove remaining Telfa madhu on Thursday
�Appreciate Gliding Pilot Instructor Onc
Subjective Data
Procedure
10/21/23- Robotic converted to open resection of right pelvic mass with en bloc sigmoidectomy and appendectomy, right hemicolectomy, flexible sigmoidoscopy, tap block, bilateral ureterolysis, partial omentectomy, robotic total abdominal hysterectomy
with bilateral salpingo-oophorectomy, peritoneal biopsy with washings, by Dr. Krishna Michel (to be dictated separately)
Subjective Data
Date of Service: October 24, 2023
Patient seen and examined at bedside with Dr. Vaca. Vomiting overnight and still with nausea. Passing some minimal flatus. No BM as of yet. Pain control has been an issue. Anxious today.
Objective Data
-
Vital Signs
Temp Pulse Resp BP Pulse Ox
98.5 F 94 16 127/81 97
10/24/23 07:45 10/24/23 07:45 10/24/23 07:45 10/24/23 07:45 10/24/23 08:47
Intake & Output
10/23/23 10/24/23 10/25/23
06:59 06:59 06:59
Intake Total 1920 / 1920 1440 / 1440
Output Total 500 / 500
Balance 1420 / 1420 1440 / 1440
Intake:
Oral fluids 1260 / 1260 1440 / 1440
IV fluids (Total) 500 / 500
IV piggybacks 160 / 160
Output:
Urine, [place] 400 / 400
Urine, Voided 100 / 100
Other:
Number of approximated SMALL 1
amounts of urine
Number of approximated MODERATE 1 2
amounts of urine
Number of immeasurable emeses? 4
Lab Results
10/24/23 06:47
10/23/23 05:06
Physical Exam
-
General: No Acute Distress and AOx3
Abdomen: Soft, Distended (moderate) and Tender (generalized)
Skin: Warm and Dry
Wound: Dressing Changed (1/2 of madhu removed, eder intact. expected drainage)
Incision: Clear, Dry, Intact
[2023-10-24 15:10] VITALS: BP 137/78
[2023-10-24] MEDS: COMPAZINE 10 MG IV (15:27)
[2023-10-24] MEDS: SYNTHROID PO (17:16)
[2023-10-24] MEDS: ENTEREG PO (17:17)
[2023-10-24] MEDS: COZAAR PO (17:17)
[2023-10-24] MEDS: LOVENOX 40 MG SC (17:17)
[2023-10-24] MEDS: EFFEXOR XR 150 MG PO (17:26)
[2023-10-24] MEDS: ENTEREG 12 MG PO (20:42)
[2023-10-24 23:04] VITALS: BP 116/73
[2023-10-25] MEDS: TORADOL 15 MG IV ×5 (03:07→20:00)
[2023-10-25 06:00] VITALS: BMI 27.1
[2023-10-25] MEDS: SYNTHROID 125 MCG PO (06:10)
[2023-10-25] MEDS: LR 1000 IV ×2 (06:10→18:30)
[2023-10-25] MEDS: OFIRMEV 100 IV (06:10)
[2023-10-25 07:14] LABS: Hematocrit 31.5 % (37.0-47.0); Hemoglobin 10.4 g/dL (12.0-16.0); Mean Corpuscular Hgb 29.1 pg (27.0-31.0); Mean Corpuscular Volume 88.2 fL (81.0-99.0); Mean Platelet Volume 9.1 fL (7.4-10.4); Platelet Count 362 10^3/uL (130-400); Red Blood Cell Count 3.57 10^6/uL (4.20-5.40); Red Cell Dist. Width 13.5 % (11.5-14.5); White Blood Cell Count 4.3 10^3/uL (4.8-10.8)
[2023-10-25 07:31] VITALS: BP 131/78
[2023-10-25 07:38] LABS: Blood Urea Nitrogen 10 mg/dl (7-17); Calcium 8.5 mg/dl (8.4-10.2); Carbon Dioxide 18 mmol/L (22-30); Chloride 105 mmol/L (98-107); Estimated Creatinine Clearance 88 ml/min; Glucose 75 mg/dl (70-99); Potassium 3.8 mmol/L (3.5-5.1); Sodium 130 mmol/L (135-145); eGFR > 60.00
[2023-10-25] MEDS: COZAAR 25 MG PO (08:11)
[2023-10-25] MEDS: ENTEREG 12 MG PO (08:11)
[2023-10-25] MEDS: EFFEXOR XR 150 MG PO (08:11)
[2023-10-25] MEDS: COMPAZINE 10 MG IV ×2 (09:44→16:15)
[2023-10-25] MEDS: ATIVAN 0.5 MG IV ×2 (10:32→18:32)
[2023-10-25] MEDS: NSS (PRESERVATIVE FREE) 0.25 ML IV ×2 (10:32→18:32)
--- NOTE | 2023-10-25 13:23 | W.PN.CRS1 ---
Today's Communication / Plan
-
Kallie removed
Adv to [facility]
Assessment/Plan
-
POD#3 Robotic converted to open resection of right pelvic mass with en bloc sigmoidectomy and appendectomy, right hemicolectomy, flexible sigmoidoscopy, tap block, bilateral ureterolysis, partial omentectomy, robotic total abdominal hysterectomy
with bilateral salpingo-oophorectomy, peritoneal biopsy with washings, by Dr. Krishna Michel (to be dictated separately)
-Adv to clears
-Out of bed as tolerated.
-Lovenox for DVT prophylaxis. Teds and SCDs in place.
-OR pathology pending.
-PRN and JOSE pain meds
-Dry gauze to midline wound, change daily
Subjective Data
Procedure
10/21/23- Robotic converted to open resection of right pelvic mass with en bloc sigmoidectomy and appendectomy, right hemicolectomy, flexible sigmoidoscopy, tap block, bilateral ureterolysis, partial omentectomy, robotic total abdominal hysterectomy
with bilateral salpingo-oophorectomy, peritoneal biopsy with washings, by Dr. Krishna Michel (to be dictated separately)
Subjective Data
Date of Service: October 25, 2023
AFVSS, no more issues with n/v, passing some liquid stool and flatus
Objective Data
-
Vital Signs
Temp Pulse Resp BP Pulse Ox
98.4 F 83 17 131/78 99
10/25/23 07:31 10/25/23 08:11 10/25/23 07:31 10/25/23 08:11 10/25/23 07:31
Intake & Output
10/24/23 10/25/23 10/26/23
06:59 06:59 06:59
Intake Total 1440 / 1440 2260 / 2260
Balance 1440 / 1440 2260 / 2260
Intake:
Oral fluids 1440 / 1440 960 / 960
IV fluids (Total) 1100 / 1100
IV piggybacks 200 / 200
Other:
Number of approximated MODERATE 2 4
amounts of urine
Number of immeasurable emeses? 4
Number of unmeasured liquid
stools
Rectum 3
Lab Results
10/25/23 06:39
10/25/23 06:39
Physical Exam
-
Abdomen: Soft, Non Distended, Tender (approp) and Other (incision cdi, kallie removed)
Skin: Warm and Dry
[2023-10-25 16:36] VITALS: BP 142/86
[2023-10-25] MEDS: LOVENOX 40 MG SC (18:30)
--- NOTE | 2023-10-25 18:56 | PTCARENOTE ---
pt c/o nausea-medicated with Compazine @1615 per SEP. no dinner tray. at 181, pt vomited [address] Vaca notified and diet changed to NPO except sips and ice chips. pt verbalized slight relief in nausea after vomiting. pt
offered Zofran and declined. pt medicated w/IV Ativan at 1832 per SEP. abdomen remains soft, slightly distended-no change from morning assessment. pt and son asking about imaging. message to Dr Vaca. will observe.
[2023-10-25] MEDS: ENTEREG PO (20:02)
[2023-10-26] MEDS: ZOFRAN 4 MG IV ×2 (00:42→15:18)
[2023-10-26] MEDS: DILAUDID 1 MG IV ×2 (00:42→04:23)
[2023-10-26 00:45] VITALS: BP 117/67
--- NOTE | 2023-10-26 01:16 | PTCARENOTE ---
2330 pt c/o vomiting in her basin and toilet however the tech witnessed only (20cc) of green bile in her basin however the pt states ''I flushed the toilet'. Pt's IV leaking , new IV placed, IVF restarted and pt rec;d prn emtiemetic as well as
Dilaudid for c/o pain.
[2023-10-26 05:13] LABS: Hematocrit 30.3 % (37.0-47.0); Hemoglobin 10.1 g/dL (12.0-16.0); Mean Corp Hgb Conc. 33.3 g/dL (33.0-37.0); Mean Corpuscular Hgb 29.2 pg (27.0-31.0); Mean Corpuscular Volume 87.6 fL (81.0-99.0); Mean Platelet Volume 8.9 fL (7.4-10.4); Platelet Count 361 10^3/uL (130-400); Red Blood Cell Count 3.46 10^6/uL (4.20-5.40); Red Cell Dist. Width 13.4 % (11.5-14.5); White Blood Cell Count 3.5 10^3/uL (4.8-10.8)
[2023-10-26 05:46] LABS: Blood Urea Nitrogen 7 mg/dl (7-17); Calcium 8.5 mg/dl (8.4-10.2); Carbon Dioxide 19 mmol/L (22-30); Chloride 103 mmol/L (98-107); Estimated Creatinine Clearance 88 ml/min; Glucose 94 mg/dl (70-99); Potassium 3.8 mmol/L (3.5-5.1); Sodium 130 mmol/L (135-145); eGFR > 60.00
[2023-10-26 06:00] VITALS: BMI 27.0
[2023-10-26] MEDS: SYNTHROID PO (07:16)
--- NOTE | 2023-10-26 07:16 | PTCARENOTE ---
pt refused Synthroid c/o abd discomfort.
[2023-10-26 07:17] VITALS: BP 142/84
--- NOTE | 2023-10-26 08:09 | W.PN.ONC ---
Today's Communication / Plan
-
N/A
Impression
Impression
She has passed flatus, she has had a liquid bowel movement. Overall appears to be stable, feels very hungry. I recommended starting with liquid diet and advancing as tolerated.
She was recommended to have an obstruction series flatplate and upright as well
Plan
Plan
POD#6 Robotic converted to open resection of right pelvic mass with en bloc sigmoidectomy and appendectomy, right hemicolectomy, flexible sigmoidoscopy, tap block, bilateral ureterolysis, partial omentectomy, robotic total abdominal hysterectomy
with bilateral salpingo-oophorectomy, peritoneal biopsy with washings
Patient is recovering well today, labs are reviewed and are normal.
She appears to have abdominal pain secondary to ileus which clinically appears to be resolving.
Subjective/Objective
Subjective/Objective
Patient reports she had a horrible weekend, she has had several episodes of emesis including late last night, however she has began passing flatus and finally has had a bowel movement. Abdominal pain is much relieved
Vital Signs:
Vital Signs
Temp Pulse Resp BP Pulse Ox
99.6 F 96 16 142/84 98
10/26/23 07:17 10/26/23 07:17 10/26/23 07:17 10/26/23 07:17 10/26/23 07:17
Lab Results:
Laboratory Data
WBC 3.5 10^3/uL (4.8-10.8) L 10/26/23 04:40
Hgb 10.1 g/dL (12.0-16.0) L 10/26/23 04:40
Plt Count 361 10^3/uL (130-400) 10/26/23 04:40
eGFR > 60.00 10/26/23 04:40
Orders
Orders
Orders From Last 24 Hours
10/26/23 Breakfast
Clear Liquid
10/26/23 08:06
Advance Diet as Tolerated As Directed
[2023-10-26] MEDS: TORADOL 15 MG IV (10:11)
[2023-10-26] MEDS: COZAAR 25 MG PO (10:13)
[2023-10-26] MEDS: EFFEXOR XR 150 MG PO (10:13)
[2023-10-26] MEDS: ENTEREG 12 MG PO ×2 (10:13→20:55)
--- NOTE | 2023-10-26 10:27 | CM ---
Addendum entered by Maria Eugenia Jerry RN 10/26/23 15:41:
IMM signed and placed on chart.
Original Note:
Reviewed the chart notes. The patient's diet has been advanced to full liquids today at lunch. CM continues to be available to patient/family and is monitoring medical plan for needs at discharge.
Plan: Discharge to home when medically stable. No needs anticipated at this time. Patient able to ambulate 175' with rolling walker and supervision.
[2023-10-26 11:26] VITALS: BP 142/85; PULSE 81; O2SAT 98
--- NOTE | 2023-10-26 11:30 | PTOTSP ---
Pt is now able to get OOB and ambulate independently in her room and in hallway without an assistive device and is able to climb steps with railing without difficulty. Goals met. PT will sign off.
--- NOTE | 2023-10-26 12:24 | W.PN.CRS1 ---
Today's Communication / Plan
-
Full liquids
Assessment/Plan
-
POD#4 Robotic converted to open resection of right pelvic mass with en bloc sigmoidectomy and appendectomy, right hemicolectomy, flexible sigmoidoscopy, tap block, bilateral ureterolysis, partial omentectomy, robotic total abdominal hysterectomy
with bilateral salpingo-oophorectomy, peritoneal biopsy with washings, by Dr. Krishna Michel (to be dictated separately)
1. Vital signs normal. Labs normal.
2. Advance diet to full's.
3. DC IV fluids when tolerating p.o. intake.
4. Out of bed as tolerated.
5. Lovenox for DVT prophylaxis. Teds and SCDs in place.
6. OR pathology pending.
7. Dry gauze to midline wound, change daily
Subjective Data
Procedure
10/21/23- Robotic converted to open resection of right pelvic mass with en bloc sigmoidectomy and appendectomy, right hemicolectomy, flexible sigmoidoscopy, tap block, bilateral ureterolysis, partial omentectomy, robotic total abdominal hysterectomy
with bilateral salpingo-oophorectomy, peritoneal biopsy with washings, by Dr. Krishna Michel (to be dictated separately)
Subjective Data
Date of Service: October 26, 2023
Patient states over the weekend she had abdominal pain and was vomiting. Today she has no nausea. She has flatus. She has had bowel movements. She does not feel bloated. She does feel hungry.
Objective Data
-
Vital Signs
Temp Pulse Resp BP Pulse Ox
99.6 F 96 16 142/84 98
10/26/23 07:17 10/26/23 07:17 10/26/23 07:17 10/26/23 07:17 10/26/23 07:17
Intake & Output
10/25/23 10/26/23 10/27/23
06:59 06:59 06:59
Intake Total 2260 / 2260 1220 / 1220
Output Total 300 / 300
Balance 2260 / 2260 920 / 920
Intake:
Oral fluids 960 / 960 420 / 420
IV fluids (Total) 1100 / 1100 800 / 800
IV piggybacks 200 / 200
Output:
Emesis 300 / 300
Other:
Number of approximated MODERATE 4 5 3
amounts of urine
Number of immeasurable emeses? 2
Number of unmeasured liquid
stools
Rectum 3
Lab Results
10/26/23 04:40
10/26/23 04:40
Physical Exam
-
General: No Acute Distress and AOx3
Abdomen: Soft, Non Distended and Non Tender
Skin: Warm and Dry
Wound: Dressing Changed
Incision: Clear, Dry, Intact
[2023-10-26] MEDS: LR IV (12:29)
--- NOTE | 2023-10-26 12:30 | PTCARENOTE ---
pt started clear liquids at breakfast. only taking small amounts but requesting advancement in diet to full liquids. denies nausea but c/o feeling hungry. diet advanced at lunch to full liquids as pt requested. pt tolerated water, soup, pudding
and caridad jeanette. denies nausea, c/o feeling full. IVF stopped per orders. will observe.
--- NOTE | 2023-10-26 13:10 | W.PN.ONC2 ---
Today's Communication / Plan
-
Doing well: tolerating PO's, has been OOB and ambulating, denies current pain.
Path pending
Will schedule outpt f/u to review path and discuss plan for systemic therapy.
Impression
Impression
Intra-abdominal malignancy, awaiting path
Post-op pain
Plan
Plan
s/p Robotic converted to open resection of right pelvic mass with en bloc sigmoidectomy and appendectomy, right hemicolectomy, flexible sigmoidoscopy, tap block, bilateral ureterolysis, partial omentectomy, robotic total abdominal hysterectomy with
bilateral salpingo-oophorectomy, peritoneal biopsy with washings
Subjective/Objective
Chief Complaint
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
Subjective
Pt states she had a tough weekend but feeling better today
Vital Signs:
Vital Signs
Temp Pulse Resp BP Pulse Ox
99.6 F 96 16 142/84 98
10/26/23 07:17 10/26/23 07:17 10/26/23 07:17 10/26/23 07:17 10/26/23 07:17
Lab Results:
Laboratory Data
WBC 3.5 10^3/uL (4.8-10.8) L 10/26/23 04:40
Hgb 10.1 g/dL (12.0-16.0) L 10/26/23 04:40
Plt Count 361 10^3/uL (130-400) 10/26/23 04:40
eGFR > 60.00 10/26/23 04:40
Physical Exam
HEENT: Moist Mucous Membranes; No Jaundice
Cardiology: Normal Sinus Rhythm, S1 and S2
Pulmonary: Clear; No Wheezes or Rales
GI: Soft and Normal Bowel Sounds; No Distended
Extremities: No C/C/E
Neuro: Non Focal
Review of Systems
Review of Systems
Constitutional: Reports Fatigue; Denies Fever
Head: Denies Sore Throat or Hearing Loss
Respiratory: Denies Dyspnea or Cough
Cardiovascular: Denies Chest Pain or Palpitations
Genitourinary: Denies Hematuria
Skin: Denies Rash or Pruritis
Neurological: Denies Headache or Numbness
Psychiatric: Denies Depression or Insomnia
Hem/Lymphatic: Denies Easy Bruising or Swollen Glands
--- NOTE | 2023-10-26 14:37 | PN.CDI ---
CDI
- -
CDI:
Physician Documentation Request
Admit Date: 10/21/23 06:05
Dear Doctor Hernandez,
Please review the following and provide your response in the progress notes.
Clinical Indicators:
Laboratory Tests
10/22/23 10/23/23 10/25/23
04:26 05:06 06:39
Sodium 133 L 133 L 130 L
10/26/23
04:40
Sodium 130 L
Based on the above, please clarify in the progress notes, the appropriate diagnosis, if significant, that supports the above abnormalities and additional evaluation, monitoring and/or treatment rendered:
Hyponatremia
Abnormal lab value, clinically insignificant
Other
Use of terms such as suspected, likely, concern for, or probable (associated with a specific diagnosis that is being evaluated, monitored, or treated as if it exists) are acceptable and can be coded in the inpatient setting, when documented at the
time of discharge.
Thank you,
Analisa Shahid RN BSN CCDS
CDI Specialist
please contact via tiger text
Please use your independent medical judgment in providing your response.
[2023-10-26] MEDS: TUMS 2 TABLET PO (14:47)
--- NOTE | 2023-10-26 14:48 | PTCARENOTE ---
pt c/o indigestion after lunch. denies nausea. pt states: ' I put too much pepper in the soup and it's bothering me! '
pt medicated w/TUMS x 2 per SEP. will observe.
[2023-10-26 15:15] VITALS: BP 142/87
[2023-10-26] MEDS: FLUSH (NSS) 2 FLUSH IV ×2 (15:19→16:23)
[2023-10-26] MEDS: DILAUDID 0.5 MG IV (16:23)
[2023-10-26] MEDS: LOVENOX 40 MG SC (17:14)
[2023-10-26 23:37] VITALS: BP 136/80
[2023-10-27] MEDS: LR IV (01:16)
[2023-10-27] MEDS: SYNTHROID 125 MCG PO (05:46)
[2023-10-27 06:00] VITALS: BMI 26.0
[2023-10-27] MEDS: COZAAR 25 MG PO (07:26)
[2023-10-27] MEDS: EFFEXOR XR 150 MG PO (07:26)
[2023-10-27] MEDS: ENTEREG 12 MG PO (07:26)
[2023-10-27 07:40] VITALS: BP 119/80
--- NOTE | 2023-10-27 09:56 | W.PN.CRS1 ---
Today's Communication / Plan
-
Low residue
Discharge later today if tolerating
Assessment/Plan
-
POD#6 Robotic converted to open resection of right pelvic mass with en bloc sigmoidectomy and appendectomy, right hemicolectomy, flexible sigmoidoscopy, tap block, bilateral ureterolysis, partial omentectomy, robotic total abdominal hysterectomy
with bilateral salpingo-oophorectomy, peritoneal biopsy with washings, by Dr. Krishna Michel (to be dictated separately)
1. Vital signs normal.
2. Advance diet to low residue.
3. Out of bed as tolerated.
4. Lovenox for DVT prophylaxis. Teds and SCDs in place.
5. OR pathology pending.
6. Dry gauze to midline wound, change daily.
7. Okay for discharge today if tolerates a low residue diet. All discharge instructions discussed with patient who is in agreement. All questions answered.
Subjective Data
Procedure
10/21/23- Robotic converted to open resection of right pelvic mass with en bloc sigmoidectomy and appendectomy, right hemicolectomy, flexible sigmoidoscopy, tap block, bilateral ureterolysis, partial omentectomy, robotic total abdominal hysterectomy
with bilateral salpingo-oophorectomy, peritoneal biopsy with washings, by Dr. Krishna Michel (to be dictated separately)
Subjective Data
Date of Service: October 27, 2023
Patient states she feels great. She feels like she turned a corner overnight. She has no pain. She denies nausea or vomiting.
Objective Data
-
Vital Signs
Temp Pulse Resp BP Pulse Ox
98.5 F 84 18 119/80 96
10/27/23 07:40 10/27/23 07:40 10/27/23 07:40 10/27/23 07:40 10/27/23 07:40
Intake & Output
10/26/23 10/27/23 10/28/23
06:59 06:59 06:59
Intake Total 1220 / 1220 1260 / 1260
Output Total 300 / 300
Balance 920 / 920 1260 / 1260
Intake:
Oral fluids 420 / 420 900 / 900
IV fluids (Total) 800 / 800 360 / 360
Output:
Emesis 300 / 300
Other:
Number of approximated MODERATE 5 2
amounts of urine
Number of approximated LARGE 2
amounts of urine
Number of immeasurable emeses? 2
Number of unmeasured liquid
stools
Rectum 2
Lab Results
10/26/23 04:40
10/26/23 04:40
Physical Exam
-
General: No Acute Distress and AOx3
Abdomen: Soft, Non Distended and Non Tender
Skin: Warm and Dry
Incision: Clear, Dry, Intact
--- NOTE | 2023-10-27 10:01 | W.DS.TRANS ---
DC Summary - Smooth Plater
-
Discharge Instructions:
Discharge Diagnosis/Procedures Robotic converted to open resection of right
pelvic mass with en bloc sigmoidectomy and
appendectomy, right hemicolectomy, flexible
sigmoidoscopy, tap block, bilateral ureterolysis
, partial omentectomy, robotic total abdominal
hysterectomy with bilateral salpingo-
oophorectomy, peritoneal biopsy with washings
Diet Low Residue
Activity No strenuous activity
Additional Activity No lifting over 10lbs (gallon of milk)
Driving Restrictions No driving while using narcotics
Bathing Restrictions OK to Shower
Wound Care Cover wound with 4x4 gauze and tape. Change
daily. Okay to leave uncovered to shower.
Edy will be removed at your office
appointment.
Instructions: Low Fiber Diet
Stand-Alone Forms:
Changes to Home Medications: No
Discharge Medications:
DC Medications w/original date entered in [facility]
venlafaxine 150 mg capsule,extended release 24 hr (Effexor XR) 150 mg PO DAILY Mental Health/Anxiety 12/07/19
losartan 25 mg tablet 25 mg PO DAILY Blood Pressure 08/17/23
levothyroxine 125 mcg tablet 125 mcg PO DAILY hypothyroidism 10/20/23
Home Medication Changes
Pending Results: Yes
Additional Pending Results:
OR pathology
--- NOTE | 2023-10-27 11:33 | CM ---
Reviewed the chart notes. The patient is being discharged today to home with no additional needs being identified at this time. CM continues to be available to patient/family and is monitoring medical plan for needs at discharge.
Plan: Discharge to home today. Patient's family will provide transportation.
[2023-10-27 12:10] VITALS: BP 147/86
--- NOTE | 2023-10-29 21:43 | W.PN.UPDATE ---
Update Note
Progress Note Update
During her hospitalization she had hyponatremia most likely dilutional, which was monitored and managed with IV fluids.
--- NOTE | 2023-11-05 10:31 | W.DCSUMMARY ---
Discharge Summary
Discharge Data
Date of Admission: 10/21/23
Date of Discharge: 10/29/23
-
Pending Results: Yes
Additional Pending Results:
OR pathology
Hospital Course
68-year-old female presented for a scheduled robotic converted to open resection of right pelvic mass with en bloc sigmoidectomy and appendectomy, right hemicolectomy, flexible sigmoidoscopy, robotic total abdominal hysterectomy with bilateral
salpingo-oophorectomy, peritoneal biopsy with washings by Dr. Brown Calix and Dr. Krishna Yu for a right pelvic mass invading into the sigmoid, retroperitoneum, and right adnexa. She is brought back to the medical surgical floor. The following
day she was on a full liquid diet. Lovenox was started for DVT prophylaxis. She had some nausea and vomiting but eventually that passed and she had bowel function. Her diet was advanced to regular diet. She was ambulating without difficulty. On
postop day 6 it was determined that the patient could be discharged home all discharge instructions were discussed with the patient including medications, he feels them, and follow-up. She is to follow-up with Dr. Calix in 2 weeks.
Discharge Plan
-
Patient Disposition: Home (Routine Discharge)
Discharge Diagnosis/Procedures: Robotic converted to open resection of right pelvic mass with en bloc sigmoidectomy and appendectomy, right hemicolectomy, flexible sigmoidoscopy, tap block, bilateral ureterolysis, partial omentectomy, robotic total
abdominal hysterectomy with bilateral salpingo-oophorectomy, peritoneal biopsy with washings
Diet: Low Residue
Activity: No strenuous activity
Additional Activity: No lifting over 10lbs (gallon of milk)
Driving Restrictions: No driving while using narcotics
Bathing Restrictions: OK to Shower
Wound Care: Cover wound with 4x4 gauze and tape. Change daily. Okay to leave uncovered to shower. Edy will be removed at your office appointment.
Activity Restrictions/Additional Instructions:
Tylenol or ibuprofen as needed for pain. Maximum dose of Tylenol is 4000 mg in 24 hours. Maximum dose of ibuprofen is 3200 mg in 24 hours.
Please follow-up with your primary physician upon discharge.
Instructions: Low Fiber Diet
Referrals:
Brown Calix MD [Active] - in two weeks
Krishna Yu MD [Active] -
Prescriptions:
Continued
venlafaxine [Effexor XR] 150 MG capsule,extended release 24hr
150 mg PO DAILY
losartan 25 mg tablet
25 mg PO DAILY
levothyroxine 125 mcg Tablet
125 mcg PO DAILY
Discontinued
erythromycin 500 mg Tablet
500 mg PO PRE OP
neomycin 500 mg Tablet
1 g PO PRE OP
Sutab 1.479-0.188- 0.225 gram Tablet
0 tab PO PRE OP
Discharge Orders:
Discharge Patient (As Directed); Ordered 10/27/23
Ordered By: Glenny Pina
Discharge Date and Time
Discharge Date/Time: 10/27/23 13:25
Print Language: MALTESE
== END 2023-10-27 13:25 | disposition home or self-care (01) | DRG 330 ==
LOC: 2 SOUTH 06:05
PROVIDERS: Internal Medicine Hematology & Oncology; Physician Assistant; Registered Nurse; ADMITTING PHYSICIAN Obstetrics & Gynecology Gynecologic Oncology; ATTENDING PHYSICIAN Surgery
PROC: 0UT7FZZ Resection of Bilateral Fallopian Tubes, Via Natural or Artificial Opening With Percutaneous Endoscopic Assistance (ICD-10-PCS; 2023-10-21)
PROC: 0DTN0ZZ Resection of Sigmoid Colon, Open Approach (ICD-10-PCS; 2023-10-21)
PROC: 0DJD8ZZ Inspection of Lower Intestinal Tract, Via Natural or Artificial Opening Endoscopic (ICD-10-PCS; 2023-10-21)
PROC: 0UT9FZZ Resection of Uterus, Via Natural or Artificial Opening With Percutaneous Endoscopic Assistance (ICD-10-PCS; 2023-10-21)
PROC: 0DTF0ZZ Resection of Right Large Intestine, Open Approach (ICD-10-PCS; 2023-10-21)
PROC: 0UT2FZZ Resection of Bilateral Ovaries, Via Natural or Artificial Opening With Percutaneous Endoscopic Assistance (ICD-10-PCS; 2023-10-21)
PROC: 0DBH0ZZ Excision of Cecum, Open Approach (ICD-10-PCS; 2023-10-21)
PROC: 0WJG4ZZ Inspection of Peritoneal Cavity, Percutaneous Endoscopic Approach (ICD-10-PCS; 2023-10-21)
PROC: 0DBU0ZZ Excision of Omentum, Open Approach (ICD-10-PCS; 2023-10-21)
PROC: 0D9W0ZX Drainage of Peritoneum, Open Approach, Diagnostic (ICD-10-PCS; 2023-10-21)
PROC: 8E0W4CZ Robotic Assisted Procedure of Trunk Region, Percutaneous Endoscopic Approach (ICD-10-PCS; 2023-10-21)
PROC: 0DTJ0ZZ Resection of Appendix, Open Approach (ICD-10-PCS; 2023-10-21)
DX: C18.1 Malignant neoplasm of appendix (principal); E87.1 Hypo-osmolality and hyponatremia; R19.03 Right lower quadrant abdominal swelling, mass and lump; I10 Essential (primary) hypertension; E03.9 Hypothyroidism, unspecified; F32.A Depression, unspecified; M19.90 Unspecified osteoarthritis, unspecified site; F41.9 Anxiety disorder, unspecified; R97.0 Elevated carcinoembryonic antigen [CEA]; R11.2 Nausea with vomiting, unspecified; Z88.0 Allergy status to penicillin; Z87.19 Personal history of other diseases of the digestive system; Z87.891 Personal history of nicotine dependence; Z79.890 Hormone replacement therapy
CPT/HCPCS: 88305; 88307; 88309; 88332; 36415; 71045; 80048; 80053; 82962; 83735; 84439; 84443; 85025; 85027; 86850; 86900; 86901; 88112; 88331; 88341; 88342; 97162; 97530

== ENCOUNTER → 2023-11-18 11:47 | Outpatient (REF) | payer MEDICARE, OTHER, SELFPAY ==
[2023-11-18 12:30] LABS: Hematocrit 36.1 % (37.0-47.0); Hemoglobin 11.8 g/dL (12.0-16.0); Mean Corp Hgb Conc. 32.7 g/dL (33.0-37.0); Mean Corpuscular Hgb 29.6 pg (27.0-31.0); Mean Corpuscular Volume 90.5 fL (81.0-99.0); Mean Platelet Volume 9.2 fL (7.4-10.4); Platelet Count 325 10^3/uL (130-400); Red Blood Cell Count 3.99 10^6/uL (4.20-5.40); Red Cell Dist. Width 13.9 % (11.5-14.5); White Blood Cell Count 4.4 10^3/uL (4.8-10.8)
[2023-11-18 13:04] LABS: ALT (SGPT) 43 U/L (0-35); AST (SGOT) 28 U/L (14-36); Albumin 4.3 g/dl (3.5-5.0); Alkaline Phosphatase 159 U/L (38-126); Blood Urea Nitrogen 17 mg/dl (7-17); Calcium 10.2 mg/dl (8.4-10.2); Carbon Dioxide 27 mmol/L (22-30); Chloride 104 mmol/L (98-107); Glucose 92 mg/dl (70-99); Iron 91 ug/dl (37-170); Potassium 4.7 mmol/L (3.5-5.1); Sodium 136 mmol/L (135-145); Total Bilirubin 0.2 mg/dl (0.2-1.3); Total Protein 7.1 g/dl (6.3-8.2); eGFR > 60.00
[2023-11-18 13:13] LABS: Percent Saturation 30 % (20-50); Total Iron Binding Capacity 296 ug/dl (265-497)
[2023-11-18 13:30] LABS: CEA 7.95 ng/ml; TSH Reflex To Free T4 < 0.02 uIU/ml (0.47-4.68)
[2023-11-18 13:36] LABS: Ferritin 39.6 ng/ml (11.1-264.0)
[2023-11-18 13:46] LABS: Absolute Neutrophils -Man Diff 1.4 10^3/uL (1.4-6.5); Anisocytosis 1+; Atypical Lymphocytes 11 %; Band Neutrophils 0 % (0-3); Eosinophils 4 % (0-6); Hypochromasia 1+; Lymphocytes 44 % (20-51); Monocytes 7 % (2-9); Normal RBC Morphology No; Platelets Checked Yes; Segmented Neutrophils 33 % (42-75)
[2023-11-18 13:47] LABS: Ovalocytes 1+; Total Cells Counted 100
[2023-11-18 13:56] LABS: Free T4 1.55 ng/dl (0.78-2.19)
== END ==
LOC: REG 11:47
PROVIDERS: ATTENDING PHYSICIAN Internal Medicine Hematology & Oncology; FAMILY PHYSICIAN Internal Medicine
DX: F41.9 Anxiety disorder, unspecified (principal); G47.00 Insomnia, unspecified; D64.9 Anemia, unspecified; E03.9 Hypothyroidism, unspecified; R19.00 Intra-abdominal and pelvic swelling, mass and lump, unspecified site; K57.32 Diverticulitis of large intestine without perforation or abscess without bleeding; I10 Essential (primary) hypertension; C18.1 Malignant neoplasm of appendix; C79.60 Secondary malignant neoplasm of unspecified ovary
CPT/HCPCS: 36415; 80053; 82378; 82728; 83540; 83550; 84439; 84443; 85025

== ENCOUNTER 2023-11-23 06:21 | Day surgery (SDC) | payer MEDICARE, OTHER, SELFPAY ==
[2023-11-23 13:32] VITALS: BMI 25.8
[2023-11-23 13:34] VITALS: BMI 25.8
[2023-11-23 13:45] VITALS: BP 127/78
[2023-11-23] MEDS: NORMOSOL-R 1000 IV (13:49)
[2023-11-23] MEDS: TYLENOL 1000 MG PO (13:49)
[2023-11-23] MEDS: CELEBREX 200 MG PO (13:49)
--- NOTE | 2023-11-23 15:59 | W.IMMPOSTOP ---
Surgical Immed Post Op Note
-
Primary Surgeon: Brown Calix MD
Assisting Surgeon: None
Pre-op Diagnosis: Metastatic appendiceal cancer
Post-op Diagnosis: Metastatic appendiceal cancer
Procedure Performed: Left subclavian Mediport insertion
Anesthesia Type: Sedation with local
Specimen / Cultures: None
Estimated Blood Loss: 10 mL
Complications: None
Operative Findings: Tip of port catheter at the aortocaval junction, 1 to 2 cm below the level of the adelfo; had good blood return and easy infusion after securing port to the chest wall; will confirm placement and rule out pneumothorax with CXR in
PACU
[2023-11-23 16:00] VITALS: BP 108/59
--- NOTE | 2023-11-23 16:02 | OR.RPT ---
Operative Report
Operative Report
DATE OF OPERATION: 11/23/2023
SURGEON: Brown Calix MD
PREOPERATIVE DIAGNOSIS: Metastatic appendiceal cancer
POSTOPERATIVE DIAGNOSIS: Metastatic appendiceal cancer
OPERATION: Left subclavian Mediport insertion
ASSISTANTS:
1. None
ANESTHESIA: MAC w/ local
ESTIMATED BLOOD LOSS: 10 mL
FINDINGS:
1. After placement, the tip of port catheter visualized at level of the cavoatrial junction on fluoroscopy
2. Once sutured in position, port tested with Velasco needle and there was good withdrawal of blood and instillation of heparinized saline without resistance
SPECIMENS: None
DRAINS: None
COMPLICATIONS: None
INDICATIONS: The patient is a 68-year-old female with metastatic appendiceal carcinoma. Infusional chemotherapy was recommended. Therefore, I recommended port placement. The operation was discussed with the patient in detail including risks and
benefits. Risks discussed included, but are not limited to, bleeding, infection, hemothorax, pneumothorax, post-operative malposition or movement of catheter, DVT/PE, and anesthetic risks. The patient understood and agreed to proceed. The consent
was signed and placed in the chart.
PROCEDURE: Patient was taken to the operating room and placed on the operating table in supine position. Sequential compression devices were placed bilaterally. Sedation was commenced without complication. Bilateral arms were tucked and the head
tilted toward the right. The left neck and chest wall area were prepped and draped in a sterile fashion. A time-out was then performed verifying the correct patient, procedure, operative site, positioning, and special equipment.
The patient was then placed in Trendelenburg position. Local anesthetic consisting of lidocaine 1% with epinephrine was used to numb the skin and soft tissue near the angle of the left clavicle and the planned subcutaneous port pocket. Then using
bony landmarks as a guide, I passed the needle with 10mL syringe under the left collar bone in the direction of the sternal notch while simultaneously aspirating. On the first pass, good venous return was noted indicating that I had accessed the
left subclavian vein. Under fluoroscopic guidance a guidewire was passed through the needle into the patient down to the superior vena cava. This went smoothly.
The needle was removed over the guidewire and a skin opening was enlarged with an 11 blade scalpel. Next, I advanced the dilator and peel-away sheath together over the guidewire into the patient. This went smoothly as well. Next, the guidewire and
inner dilator were removed leaving the outer sheath in place. I advanced the white tubing through the outer sheath into the patient under fluoroscopic guidance to the superior vena cava near the right atrium. Next, the outer sheath was peeled away
while maintaining the white tubing in place.
Using a 15 blade scalpel, I made a 3cm incision over the chest wall near the white tubing exit site. A subcutaneous pocket was created inferiorly to the incision with a combination of Bovie electrocautery and blunt dissection. There was good
hemostasis. The white tubing was connected to the tunneling device and brought through a newly created tunnel to the pocket area, taking care to avoid kinking of the tube. The white tubing was trimmed, connected to the the port reservoir and secured
with the locking mechanism. The port reservoir was accessed with good venous return and flushed with heparinized saline. One last round of fluoroscopy was performed. The tip of the white tubing was at the level of the superior vena cava and there
was no kink in the tubing.
The reservoir was then secured to the chest wall within the pocket with two 3-0 Prolene stitches. The subcutaneous layer was closed with deep dermal interrupted 3-0 Vicryl and the skin was closed with a running subcuticular 4-0 Vicryl. The remaining
local was injected around the subcutaneous pocket, port incision and stab incision. Dermabond was used to dress the port incision and stab incision.
At this point, the procedure was complete. All sponge, needle and instrument counts were correct. The patient tolerated the procedure well and was transferred to the recovery room in stable condition. A portable chest x-ray was ordered in recovery
to confirm port position and rule-out pneumothorax.
DICTATED BY: Brown Calix MD
[2023-11-23 16:15] VITALS: BP 114/68
[2023-11-23 16:30] VITALS: BP 119/65
== END 2023-11-23 16:45 | disposition home or self-care (01) ==
LOC: SDS 06:21
PROVIDERS: ATTENDING PHYSICIAN Surgery
DX: C18.1 Malignant neoplasm of appendix (principal)
CPT/HCPCS: 36561; 71045; 76000; C1788

== ENCOUNTER → 2024-01-04 11:12 | Outpatient (REF) | payer MEDICARE, OTHER, SELFPAY | LOC: HWRAD 11:12 | PROVIDERS: ATTENDING PHYSICIAN Internal Medicine; REFERRING PHYSICIAN Obstetrics & Gynecology Gynecologic Oncology | DX: R19.00 Intra-abdominal and pelvic swelling, mass and lump, unspecified site (principal); E03.9 Hypothyroidism, unspecified; R79.89 Other specified abnormal findings of blood chemistry; R94.8 Abnormal results of function studies of other organs and systems | CPT/HCPCS: 76536 ==

== ENCOUNTER → 2024-01-06 08:07 | Outpatient (REF) | payer MEDICARE, OTHER, SELFPAY ==
[2024-01-06 09:00] LABS: % Basophils 0.2 % (0-2); % Eosinophils 0.5 % (0-6); % Immature Granulocytes 1.2 % (0-0.5); % Lymphocytes 11.4 % (20.5-51.1); % Monocytes 11.1 % (1.7-9.3); % Neutrophils 75.6 % (42.2-75.2); Absolute Basophils 0.1 10^3/uL (0-0.2); Absolute Eosinophils 0.1 10^3/uL (0-0.7); Absolute Immature Granulocytes 0.3 10^3/uL (0-0.05); Absolute Lymphocytes 2.5 10^3/uL (1.2-3.4); Absolute Monocytes 2.5 10^3/uL (0.1-0.6); Absolute Neutrophils 16.7 10^3/uL (1.4-6.5); Hematocrit 34.4 % (37.0-47.0); Hemoglobin 11.8 g/dL (12.0-16.0); Mean Corp Hgb Conc. 34.3 g/dL (33.0-37.0); Mean Corpuscular Hgb 30.3 pg (27.0-31.0); Mean Corpuscular Volume 88.2 fL (81.0-99.0); Mean Platelet Volume 9.5 fL (7.4-10.4); Nucleated Red Blood Cells % 0 %; Platelet Count 204 10^3/uL (130-400); Red Cell Dist. Width 15.1 % (11.5-14.5); White Blood Cell Count 22.1 10^3/uL (4.8-10.8)
[2024-01-06 10:11] LABS: ALT (SGPT) 29 U/L (0-35); AST (SGOT) 23 U/L (14-36); Albumin 4.5 g/dl (3.5-5.0); Alkaline Phosphatase 205 U/L (38-126); Blood Urea Nitrogen 11 mg/dl (7-17); Calcium 10.1 mg/dl (8.4-10.2); Carbon Dioxide 22 mmol/L (22-30); Chloride 101 mmol/L (98-107); Glucose 89 mg/dl (70-99); Potassium 3.5 mmol/L (3.5-5.1); Sodium 136 mmol/L (135-145); Total Bilirubin 0.5 mg/dl (0.2-1.3); Total Protein 7.1 g/dl (6.3-8.2); eGFR > 60.00
[2024-01-06 10:33] LABS: Prealbumin (Transthyretin) 28.3 mg/dl (17.6-36.0)
[2024-01-06 10:48] LABS: CEA 3.98 ng/ml
[2024-01-07 18:56] LABS: CA 125 9.5 U/mL (0-35)
[2024-01-08 00:59] LABS: Transferrin 270 mg/dL (200-360)
[2024-01-08 01:20] LABS: CA 19-9 <2 U/mL (<=35)
== END ==
LOC: REG 08:07
PROVIDERS: ATTENDING PHYSICIAN Surgery; FAMILY PHYSICIAN Allergy & Immunology; REFERRING PHYSICIAN Internal Medicine Hematology & Oncology
DX: C18.1 Malignant neoplasm of appendix (principal); R97.8 Other abnormal tumor markers; R19.00 Intra-abdominal and pelvic swelling, mass and lump, unspecified site; K57.32 Diverticulitis of large intestine without perforation or abscess without bleeding; I10 Essential (primary) hypertension; E03.9 Hypothyroidism, unspecified; C18.4 Malignant neoplasm of transverse colon; C79.60 Secondary malignant neoplasm of unspecified ovary
CPT/HCPCS: 36415; 80053; 82378; 84134; 84466; 85025; 86301; 86304

== ENCOUNTER → 2024-03-07 08:05 | Outpatient (REF) | payer MEDICARE, OTHER, SELFPAY | LOC: RAD 08:05 | PROVIDERS: ATTENDING PHYSICIAN Surgery; FAMILY PHYSICIAN Internal Medicine; REFERRING PHYSICIAN Internal Medicine Hematology & Oncology | DX: C18.1 Malignant neoplasm of appendix (principal) | CPT/HCPCS: 74177; Q9967 ==

== ENCOUNTER → 2024-03-22 06:17 | Day surgery (SDC) | payer MEDICARE, OTHER, SELFPAY | LOC: GI 06:17 | PROVIDERS: ATTENDING PHYSICIAN Surgery | DX: Z12.11 Encounter for screening for malignant neoplasm of colon (principal); K64.8 Other hemorrhoids; K57.30 Diverticulosis of large intestine without perforation or abscess without bleeding; Z85.038 Personal history of other malignant neoplasm of large intestine; Z98.0 Intestinal bypass and anastomosis status | CPT/HCPCS: G0105 ==

== ENCOUNTER 2024-04-18 20:47 | Inpatient (IN) | payer MEDICARE, OTHER, SELFPAY ==
[2024-04-18] VITALS (9 sets, daily range): BP systolic 91–118; BP diastolic 60–87; PULSE 84–102; BMI 25.0
[2024-04-18 16:57] LABS: Hematocrit 28.5 % (37.0-47.0); Hemoglobin 10.3 g/dL (12.0-16.0); Mean Corp Hgb Conc. 36.1 g/dL (33.0-37.0); Mean Corpuscular Hgb 32.8 pg (27.0-31.0); Mean Corpuscular Volume 90.8 fL (81.0-99.0); Mean Platelet Volume 9.4 fL (7.4-10.4); Platelet Count 359 10^3/uL (130-400); Red Blood Cell Count 3.14 10^6/uL (4.20-5.40); Red Cell Dist. Width 12.6 % (11.5-14.5); White Blood Cell Count 5.7 10^3/uL (4.8-10.8)
[2024-04-18 17:12] LABS: ALT (SGPT) 27 U/L (0-35); AST (SGOT) 24 U/L (14-36); Albumin 3.8 g/dl (3.5-5.0); Alkaline Phosphatase 331 U/L (38-126); Blood Urea Nitrogen 10 mg/dl (7-17); Calcium 9.1 mg/dl (8.4-10.2); Carbon Dioxide 22 mmol/L (22-30); Chloride 98 mmol/L (98-107); Glucose 100 mg/dl (70-99); Lipase 93 U/L (23-300); Sodium 133 mmol/L (135-145); Total Bilirubin 0.4 mg/dl (0.2-1.3); Total Protein 6.3 g/dl (6.3-8.2); eGFR > 60.00
[2024-04-18 17:16] LABS: % Basophils 0.2 % (0-2); % Eosinophils 0.7 % (0-6); % Immature Granulocytes 0.3 % (0-0.5); % Lymphocytes 24.3 % (20.5-51.1); % Monocytes 7.9 % (1.7-9.3); % Neutrophils 66.6 % (42.2-75.2); Absolute Lymphocytes 1.4 10^3/uL (1.2-3.4); Absolute Monocytes 0.5 10^3/uL (0.1-0.6); Absolute Neutrophils 3.8 10^3/uL (1.4-6.5); Nucleated Red Blood Cells % 0 %
--- NOTE | 2024-04-18 17:42 | ED.GENMED ---
History of Present Illness
General
Chief Complaint: Abdominal Symptoms
Source: patient
Time Seen by Provider: 04/18/24 17:17
History of Present Illness
History of Present Illness:
69 year old female with PMH of appendiceal cancer s/p exploratory laparotomy leading to partial bowel resection, splenectomy, partial diaphragm removal, and cholecystectomy done on 04/06 at [facility] in [place], discharged home on 04/12
but since has had persistent nauea, vomiting, diarrhea and minimal to no PO intake. Patient had a follow-up visit at primary care's office today and was recommended to come to the ER for further evaluation of suspected dehydration. Patient denies
any fevers, chills, rigors, urinary symptoms, sick contacts or recent antibiotics. She does note that she was feeling a little bit better prior to her discharge on the has been having a very hard time dealing with symptoms at home despite
Zofran and Percocet as needed for symptoms. Patient has a follow-up scheduled with surgery team next week. She notes that the surgical site is well-healing and without signs of infection.
Past History
Past History
ED Past Medical History: Cancer, HTN, Hypothyroidism and Psychiatric (Depression)
ED Past Surgical History: Appendectomy, Bowel resection, Cholecystectomy, Gynecological, Orthopedic and Other (Polypectomy)
Social History
Tobacco: Non-smoker
Alcohol: Occasional
Drug: None
Personal:
Living: alone
Employment: Employed
Review of Systems
Review of Systems
All Other Systems: ROS reviewed and negative except as documented in HPI and ROS
Phy Exam
Physical Exam
Physical Exam:
GENERAL: Alert , thin, somewhat ye in color, appears
EYE: clear conjunctiva b/l
HEAD: NCAT
ENT: Dry mucous membrane
CARDIAC: Regular rate and rhythm .
LUNGS: Clear breath sounds bilaterally, no acute respiratory distress, no wheezes/rales/rhonchi
ABDOMEN: Soft, without focal tenderness, no r/g, no cvat, large midline surgical incision is well-healing with Steri-Strips overlying but no erythema surrounding and no purulence
NEUROLOGICAL: Alert and oriented
SKIN: Warm and dry, skin intact.
MUSCULOSKELETAL: No edema, well perfused.
PSYCH: Normal and appropriate interaction.
Scores
Heart Failure Risk
Heart Failure Risk Score: Not Applicable
Heart Score for Chest Pain Patients
STEMI patient?: Not applicable
Withdrawal Assessment of Alcohol
Withdrawal Assessment Completed?: Not applicable
Course
Orders/Labs/Results
Orders:
Orders
04/18/24 16:49
Complete Blood Count/With Diff Urgent
Comprehensive Metabolic Panel Urgent
Lipase Urgent
04/18/24 17:33
0.9% Sodium Chloride 1000 ml [Nss] 1,000 ml IV BOLUS
Ketorolac [Toradol] 30 mg IV NOW STA
Ondansetron Injectable [Zofran] 4 mg IV NOW STA
Potassium Chloride 10% Elixir [KCl Elixir] 40 meq PO NOW STA
04/18/24 17:34
CR Obstruct Series W/pa Chest Urgent
Comment:
Reason For Exam: recent surgery, unable to tolerate PO
04/18/24 18:04
STOOL [C difficile Antigen & Toxins] Urgent
RAMONA Source: Feces/Stool
Specimen Description:
Stool Culture Urgent
RAMONA Source: Feces/Stool
Specimen Description:
04/18/24 19:32
Potassium Chloride [KCl] 40 meq 0.9% Sodium Chloride 250 ml [Nss] 250 ml IV NOW
04/18/24 20:27
Admit/Transfer Patient As Directed
Co-Sign Provider:
Level of Care: Inpatient admission
Assign to:: Telemetry
Physician / Group: Antione
Diagnosis: Ileus, Hypokalemia
Reason for Telemetry: Arrhythmia
Date to Stop Telemetry: 04/21/24
Time to Stop Telemetry: 11:00
Reason for Hospitalization: Ileus, Hypokalemia
Expected length of stay greater than two midnights?: Yes
ELOS- Estimated Length of Stay in days: 2
I certify the patient meets the requirements for IP care: Yes
PRN Pain Medication Management As Directed
May give lesser potent ordered pain med per pt: Yes
preference::
Protocol:: Medication orders for pain may be administered in a
manner that supports deferring to patient preference
when the pt is:
- Requesting an ordered lesser potent pain medication.
Least to most potent pain medications are defined
as: acetaminophen < NSAID < tramadol < opioids
(morphine, oxycodone, hydromorphone).
- Requesting a lesser dose of the same medication IF
ORDERED.
- Requesting a less intrusive route of administration
if both routes are prescribed by the provider (PO <
IV).
04/18/24 20:28
Code Status As Directed
Resuscitation Status: Full Code
04/21/24 11:00
DC Protocol for Telemetry ONCE
Abnormal Lab Results
04/18/24
16:49
RBC 3.14 L 10^6/uL
(4.20-5.40)
Hgb 10.3 L g/dL
(12.0-16.0)
Hct 28.5 L %
(37.0-47.0)
MCH 32.8 H pg
(27.0-31.0)
Sodium 133 L mmol/L
(135-145)
Potassium 3.0 L mmol/L
(3.5-5.1)
Glucose 100 H mg/dl
(70-99)
Alkaline Phosphatase 331 H U/L
(38-126)
04/18/24 16:49
04/18/24 16:49
Vital Signs
Initial and Last Documented VS:
Initial Vital Signs
Temp Pulse Resp BP Pulse Ox
98.4 F 94 20 108/87 98
04/18/24 16:36 04/18/24 16:36 04/18/24 16:36 04/18/24 16:36 04/18/24 16:36
Last Documented Vital Signs
Temp Pulse Resp BP Pulse Ox
98.4 F 86 20 115/75 57
04/18/24 16:38 04/18/24 18:19 04/18/24 18:19 04/18/24 18:19 04/18/24 18:19
MDM/Problems Addressed
Differential Diagnosis Includes:
Dehydration, electrolyte derangement, acute kidney injury, bowel obstruction, less concern for infectious etiology
MDM/Problems Addressed:
69-year-old female presenting to the emergency department for further evaluation after she has been experiencing persistent nausea vomiting and diarrhea postoperatively, having very difficult time tolerating p.o. Taking Zofran with no relief. She
is also been using Percocet with minimal relief. Patient was at primary care office today and was recommended to come to the ER for IV fluids and further monitoring. Labs have been initiated while in triage. Patient does have a mild anemia which
is likely postoperative. She does have mild hyponatremia and hypokalemia which is likely from the vomiting and diarrhea. Will treat with fluids, Zofran and Toradol. Obstructive series ordered. Reassessment following
*Radiology
Radiology exam reviewed: radiology read reviewed
*Pulse Oximetry
Patient hypoxic: no
*Critical Care Note
Total Time (30-74mins, 75-104mins- exclusive of procedures): Not Applicable
Data Reviewed
Review of Other/Old Records Reveals: Labs, Records and Operative Reports
Source: patient and records
Patient Management
Discussion with other providers: Hospitalist
Escalation/DeEscalation of care consider admission/obs:
Obstructive series does show a suspected postoperative ileus. Given patient's symptoms, comorbidities and prolonged duration of illness will admit for further treatment with fluids and electrolyte repletion. Hospitalist team is aware and accepts
for continued evaluation and treatment.
ED Attending Note
-
Portions of this chart may have been created with voice recognition software.� Occasional wrong word or��sound alike� substitutions may have occurred due to the inherent limitations of voice recognition software.
Discharge Plan
Departure
Patient Disposition: Admit
Date of Disposition: 04/18/24
Time of Disposition: 19:14
Presentation/result/management discussed w/ accepting MD/DO: Hospitalist
Discharge Problem:
Postoperative ileus, Dehydration, Acute hypokalemia
Prescriptions:
No Action
venlafaxine [Effexor XR] 150 MG capsule,extended release 24hr
150 mg PO DAILY
losartan 25 mg tablet
25 mg PO DAILY
levothyroxine 125 mcg Tablet
125 mcg PO DAILY
Referrals:
UNKNOWN - PT DOES,NOT KNOW [Unknown Provider] -
Interventions
Interventions:
*Risk Screen - Suicide Last Done: 04/18/24 18:10
*General Assessment Last Done: 04/18/24 18:09
*Neglect/Abuse Screening Last Done: 04/18/24 18:10
*ED COVID-19 Vaccine History Last Done: 04/18/24 18:09
VQ-Xdfeos-Ltyrtlqegy Assessment Last Done: 04/18/24 18:16
Discharge Date and Time
Print Language: FILIPINO
[2024-04-18] MEDS: NSS 1000 IV (18:00)
[2024-04-18] MEDS: ZOFRAN 4 MG IV (18:12)
[2024-04-18] MEDS: TORADOL 30 MG IV (18:12)
--- NOTE | 2024-04-18 18:23 | EDRN ---
Pulse ox reading at 1819 was an error, pulse oximeter was not correctly place on pt's finger. pulse ox 100% on RA pt with no signs of respiratory distress.
[2024-04-18] MEDS: KCL 270 MEQ IV (19:42)
--- NOTE | 2024-04-18 20:01 | HPS.HSE ---
Family Physician
-
Family Physician: Delisa Yin
Chief Complaint
-
N/V
History of Present Illness
Patient is a 69y F with PMH significant for appendiceal cancer who presents to ED complaining of N/V and some fecal incontinence. Patient initially underwent major abdominal surgery here in September 2023. She was doing fairly well in the interim.
She had follow-up at [facility] and recently underwent exploratory laparotomy for debulking (HIPEC). During that procedure she notes that she underwent cholecystectomy, splenectomy, partial diaphragm resection and partial small bowel resection.
This was 04/06/[address] Champagne. Since that procedure, patient states that she has had nausea and decreased appetite. Since her return home on 04/12, she has been unable to tolerate any PO intake. She has N/V with even sips of liquid.
She also complains of fecal incontinence of liquid stool. She has sensation that stool is 'pouring out' - though here in the ED she has only mild spotting on her brief associated with that sensation.
Patient denies any abdominal pain. She has no fevers / chills. No other recent complaints / concerns.
Medical History
Past Medical History
Past Medical History: Reports Other
Additional Past Medical History:
Appendiceal Cancer
Hypertension
Hypothyroidism
Depression
Past Surgical History: Reports Other
Additional Past Surgical History:
HICAP 04/06/24 - Ex Lap, partial bowel resection, cholecystectomy, splenectomy, partial diaphragm resection
Pelvic Mass Excision / Appendectomy, Sigmoidectomy, R Hemicolectomy, Hysterectomy / BSO, Omentectomy - September 2023
Left Breast Biopsy (benign)
LLE Vein Stripping
Right Knee Arthroscopy
Social History
Tobacco: Former Smoker (Quit smoking 40 years ago. )
Alcohol: None
Drug: None
Family History
Family History: Not pertinent
Allergies / Home Medications
Allergies reflects when Allergies were last updated in [facility].
Home Medications with original date entered in [facility]
Allergy/Medication List:
Allergies
Allergy/AdvReac Type Severity Reaction Status Date / Time
metronidazole [From Flagyl] Allergy Nausea / Verified 04/18/24 16:35
Vomiting
Penicillins Allergy As a Verified 04/18/24 16:35
child.
Tolerated
Keflex.
Home Medications
venlafaxine 150 mg capsule,extended release 24 hr (Effexor XR) 150 mg PO DAILY Mental Health/Anxiety 12/07/19
losartan 25 mg tablet 25 mg PO DAILY Blood Pressure 08/17/23
levothyroxine 125 mcg tablet 125 mcg PO DAILY hypothyroidism 10/20/23
Review of Systems
-
History Source: Patient
A 12 point ROS was completed and negative except as noted: Yes
Constitutional: Reports Fatigue; Denies Fever or Chills
EENT: Denies Sore Throat
Respiratory: Denies Cough or Trouble Breathing
Cardiac: Denies Chest Pain
Abdomen/GI: Reports Nausea, Vomiting, Diarrhea and Anorexia; Denies Abdominal Pain, Bloody Stools or Black Stools
: Denies Dysuria, Frequency or Flank Pain
Musculoskeletal: Denies Joint Pain or Edema
Neurological: Denies Dizzy or Headache
Physical Exam
Vital Signs
Vital Signs
Temp Pulse Resp BP Pulse Ox
98.4 F 86 20 115/75 57
04/18/24 16:38 04/18/24 18:19 04/18/24 18:19 04/18/24 18:19 04/18/24 18:19
Physical Exam
General: Other (69y F in no acute distress.)
HEENT: PERRLA and Other (Dry MM.)
Respiratory: Clear; No Wheezes, Rales or Rhonchi
Cardiac: S1/S2 and Regular Rhythm; No Murmur
GI: Other (Midline incision is healing well with steri-strips in place. No surrounding erythema. No bleeding / discharge. Abdomen is soft and non-tender. Bowel sounds are appreciated.)
Musculoskeletal: No Clubbing, No Cyanosis and No Edema
Neuro: AO x 3
Laboratory Results
-
04/18/24 16:49
04/18/24 16:49
Laboratory Results
Total Bilirubin 0.4 mg/dl (0.2-1.3) 04/18/24 16:49
AST 24 U/L (14-36) 04/18/24 16:49
ALT 27 U/L (0-35) 04/18/24 16:49
Alkaline Phosphatase 331 U/L (38-126) H 04/18/24 16:49
Lipase 93 U/L (23-300) 04/18/24 16:49
Impression/Plan
-
A/P: Patient is a 69y F with PMH significant for appendiceal carcinoma s/p recent HICP surgery at [facility] who presents to ED complaining of poor PO intake, N/V/D.
Post-Op Ileus
s/p HICAP Surgery 04/06/24
- Admit for further evaluation and treatment.
- Supportive care including IVFs, antiemetics, etc.
- Advance diet as tolerated
- Consider Colorectal evaluation if symptoms worsen or persist.
Hyponatremia
Hypokalemia
- Secondary to poor intake / GI losses as noted above.
- Replace via IV route.
- Follow labs / lytes and adjust IVFs as needed.
Appendiceal Carcinoma
- s/p two significant intra-abdominal surgeries in the past 6 months.
- Following at [facility] for further care.
- L ACW port is not to be used - for chemo only.
Benign Hypertension
- Stable. Continue losartan with holding parameters.
Hypothyroidism
- Stable. Continue T4 replacement.
Depression
- Stable. Continue Effexor.
DVT Prophylaxis: SCDs
Code Status: Full
[2024-04-19] VITALS (8 sets, daily range): BP systolic 98–121; BP diastolic 62–73; PULSE 93; O2SAT 97; BMI 24.3
[2024-04-19] MEDS: ZOFRAN 4 MG IV (00:31)
[2024-04-19] MEDS: NSS with KCL 40 MEQ 1000 IV ×3 (02:03→22:08)
[2024-04-19] MEDS: SYNTHROID 125 MCG PO (05:39)
--- NOTE | 2024-04-19 07:24 | W.PN.HOSP.TC ---
Today's Communication/Plan
-
Trial of full liquids today
Assessment / Plan
Assessment / Plan
69y F with PMH significant for appendiceal carcinoma s/p recent HICP surgery at [facility] who presents to ED complaining of poor PO intake, N/V/D.
Post-Op Ileus
s/p HICAP Surgery 04/06/24
- Currently tolerating clear liquids, will advance to full liquids
- Continue antiemetics, IV fluids
Acute on chronic normocytic anemia
-Hemoglobin 8.8 today was 10.3 upon admission
-Likely a component of dilution
-Check iron studies, B12, folic acid, trend hemoglobin
Hyponatremia
Hypokalemia
- Repleted and resolved
Appendiceal Carcinoma
- s/p two significant intra-abdominal surgeries in the past 6 months.
- Following at [facility] for further care.
- L ACW port is not to be used - for chemo only.
Benign Hypertension
- Stable. Continue losartan with holding parameters.
Hypothyroidism
- Stable. Continue T4 replacement.
Depression
- Stable. Continue Effexor.
DVT Prophylaxis: SQ lovenox
Code Status: Full
Total time spent to see the patient on the floor, examine the patient, review data and lab results, discuss treatment plan with patient, nursing staff around 51 minutes.
Physical Exam
General: No acute distress
HEENT: Normocephalic, Atraumatic, EOMI, MMM
Respiratory: Clear to Auscultation bilaterally
Cardiac: Normal S1/S2, Regular Rate and Rhythm
GI: Soft, Normal Bowel Sounds, mild erica-incisional tenderness, incisions clean/dry/intact
Extremities: No Clubbing, Cyanosis, or Edema
Neuro: Nonfocal/Grossly Intact
Psych: Calm, Cooperative
Derm: No Visible lesions
Anticipated Discharge: Within 24 hours
Subjective/Interval History
-
Date of Service: April 19, 2024
Patient has been having small amounts of liquid stool. No nausea, no vomiting. She tolerated her clear liquid diet. No fever.
Objective Data
-
Labs:
Laboratory Results
04/19/24 04/19/24
06:16 06:17
WBC Pending
Hgb Pending
Hct Pending
Plt Count Pending
Sodium Pending
Potassium Pending
Chloride Pending
Carbon Dioxide Pending
BUN Pending
Creatinine Pending
Glucose Pending
Calcium Pending
Vital Signs:
Vital Signs
Temp Pulse Resp BP Pulse Ox
97.7 F 81 16 98/62 100
04/19/24 03:00 04/19/24 03:00 04/19/24 03:00 04/19/24 03:00 04/19/24 03:00
I&O
04/18/24 04/19/24 04/20/24
06:59 06:59 06:59
Intake Total 570 / 570
Balance 570 / 570
[2024-04-19 08:02] LABS: Hematocrit 24.9 % (37.0-47.0); Hemoglobin 8.8 g/dL (12.0-16.0); Mean Corp Hgb Conc. 35.3 g/dL (33.0-37.0); Mean Corpuscular Volume 93.3 fL (81.0-99.0); Mean Platelet Volume 9.7 fL (7.4-10.4); Platelet Count 327 10^3/uL (130-400); Red Blood Cell Count 2.67 10^6/uL (4.20-5.40); Red Cell Dist. Width 12.8 % (11.5-14.5); White Blood Cell Count 4.8 10^3/uL (4.8-10.8)
[2024-04-19 08:55] LABS: Blood Urea Nitrogen 10 mg/dl (7-17); Calcium 8.4 mg/dl (8.4-10.2); Carbon Dioxide 17 mmol/L (22-30); Chloride 105 mmol/L (98-107); Estimated Creatinine Clearance 76 ml/min; Glucose 85 mg/dl (70-99); Magnesium 1.8 mg/dl (1.6-2.3); Potassium 3.9 mmol/L (3.5-5.1); Sodium 135 mmol/L (135-145); eGFR > 60.00
[2024-04-19] MEDS: NSS (PRESERVATIVE FREE) 10 ML IV (08:58)
[2024-04-19] MEDS: PROTONIX IV 40 MG IV (08:58)
[2024-04-19] MEDS: EFFEXOR XR 150 MG PO (09:00)
[2024-04-19] MEDS: COZAAR PO (09:00)
--- NOTE | 2024-04-19 11:40 | CM ---
Patient seen at bedside.
IA completed.
Lives in a 2 story home on the 1st floor, son lives next door.
Family supportive.
PLOF: States independent uses no device.
Await PT/OT evals.
No needs
PCP: Delisa Yin
Pharmacy: [facility]
PLAN: Discharge when stable. Home no needs anticipated.
[2024-04-19] MEDS: SODIUM BICARBONATE 1300 MG PO ×2 (16:38→21:07)
[2024-04-19] MEDS: LOVENOX 40 MG SC (18:32)
[2024-04-20] VITALS (7 sets, daily range): BP systolic 106–125; BP diastolic 58–76; PULSE 80–97; BMI 25.3
[2024-04-20] MEDS: SYNTHROID 125 MCG PO (05:45)
[2024-04-20 06:37] LABS: Hematocrit 24.3 % (37.0-47.0); Hemoglobin 8.8 g/dL (12.0-16.0); Mean Corp Hgb Conc. 36.2 g/dL (33.0-37.0); Mean Corpuscular Hgb 34.2 pg (27.0-31.0); Mean Corpuscular Volume 94.6 fL (81.0-99.0); Mean Platelet Volume 9.5 fL (7.4-10.4); Platelet Count 346 10^3/uL (130-400); Red Blood Cell Count 2.57 10^6/uL (4.20-5.40); White Blood Cell Count 4.4 10^3/uL (4.8-10.8)
[2024-04-20 07:14] LABS: Blood Urea Nitrogen 2 mg/dl (7-17); Calcium 8.6 mg/dl (8.4-10.2); Carbon Dioxide 19 mmol/L (22-30); Chloride 106 mmol/L (98-107); Estimated Creatinine Clearance 76 ml/min; Glucose 90 mg/dl (70-99); Phosphorus 2.9 mg/dl (2.5-4.5); Potassium 4.6 mmol/L (3.5-5.1); Sodium 135 mmol/L (135-145); eGFR > 60.00
[2024-04-20 07:17] LABS: Iron < 20 ug/dl (37-170)
[2024-04-20 07:23] LABS: Total Iron Binding Capacity 203 ug/dl (265-497)
[2024-04-20 07:43] LABS: Ferritin 87.3 ng/ml (11.1-264.0)
[2024-04-20] MEDS: NSS with KCL 40 MEQ 1000 IV (07:50)
[2024-04-20] MEDS: SODIUM BICARBONATE 1300 MG PO ×3 (07:52→21:05)
[2024-04-20] MEDS: NSS (PRESERVATIVE FREE) 10 ML IV (07:52)
[2024-04-20] MEDS: PROTONIX IV 40 MG IV (07:52)
[2024-04-20] MEDS: EFFEXOR XR 150 MG PO (07:52)
[2024-04-20] MEDS: COZAAR 25 MG PO (07:56)
[2024-04-20 08:14] LABS: Folate > 20.0 ng/ml (2.76-20); Vitamin B12 729 pg/ml (239-931)
--- NOTE | 2024-04-20 08:54 | W.PN.HOSP.TC ---
Today's Communication/Plan
-
Advance to low residue
Discharge tomorrow if tolerating
Assessment / Plan
Assessment / Plan
69y F with PMH significant for appendiceal carcinoma s/p recent HICP surgery at [facility] who presents to ED complaining of poor PO intake, N/V/D.
Post-Op Ileus
s/p HICAP Surgery 04/06/24
- Currently tolerating full liquids, will advance to low residue
- Continue antiemetics prn, stop IV fluids
Iron deficiency anemia
-Hemoglobin 8.8 today was 10.3 upon admission
-Likely a component of dilution
-Start ferrous sulfate 325 mg daily
Non-anion gap metabolic acidosis
-Continue sodium bicarb
Hyponatremia
Hypokalemia
- Repleted and resolved
Appendiceal Carcinoma
- s/p two significant intra-abdominal surgeries in the past 6 months.
- Following at [facility] for further care.
- L ACW port is not to be used - for chemo only.
Benign Hypertension
- Stable. Continue losartan with holding parameters.
Hypothyroidism
- Stable. Continue T4 replacement.
Depression
- Stable. Continue Effexor.
DVT Prophylaxis: SQ lovenox
Code Status: Full
Total time spent to see the patient on the floor, examine the patient, review data and lab results, discuss treatment plan with patient, nursing staff around 41 minutes.
Physical Exam
General: No acute distress
HEENT: Normocephalic, Atraumatic, EOMI, MMM
Respiratory: Clear to Auscultation bilaterally
Cardiac: Normal S1/S2, Regular Rate and Rhythm
GI: Soft, Normal Bowel Sounds, mild erica-incisional tenderness, incisions clean/dry/intact
Extremities: No Clubbing, Cyanosis, or Edema
Neuro: Nonfocal/Grossly Intact
Psych: Calm, Cooperative
Derm: No Visible lesions
Anticipated Discharge: Within 24 hours
Subjective/Interval History
-
Date of Service: April 20, 2024
Patient tolerated her full liquid diet. No nausea, no vomiting. No abdominal pain. She is passing gas and stool. No fever.
Objective Data
-
Labs:
Laboratory Results
04/20/24
06:02
WBC 4.4 L
Hgb 8.8 L
Hct 24.3 L
Plt Count 346
Sodium 135
Potassium 4.6
Chloride 106
Carbon Dioxide 19 L
BUN 2 L
Creatinine 0.5 L
Glucose 90
Calcium 8.6
Vital Signs:
Vital Signs
Temp Pulse Resp BP Pulse Ox
99.3 F 84 14 112/64 98
04/20/24 07:04 04/20/24 07:56 04/20/24 07:04 04/20/24 07:56 04/20/24 07:04
I&O
04/19/24 04/20/24 04/21/24
06:59 06:59 06:59
Intake Total 570 / 570 3000 / 3000
Balance 570 / 570 3000 / 3000
[2024-04-20] MEDS: FEOSOL 325 MG PO (11:50)
--- NOTE | 2024-04-20 12:43 | CM ---
Met with patient and son today.
Supportive family at home, son lives next door
Discussed role of CM-declines VN
PLAN: Discharge when stable to home, no needs.
--- NOTE | 2024-04-20 15:26 | PN.CDI ---
CDI
- -
CDI:
Physician Documentation Request
Admit Date: 04/18/24 20:47
Dear Doctor Do,
Please review the following and provide your response in the progress notes.
Clinical Indicators:
Pt admitted with post-op ileus.
04/19 registered dietitian note: ' Since 04/12 she has been experiencing persistant nausea, vomit, diarrhea, and minimal p.o. intake. She states that she has lost 20 lbs in the past 3 months. This is a loss of 13% body weight in 3 months. No
swallowing concerns but due to her weight loss her dentures no longer fit her.
Amount consumed: 40% (direct observation).....Patient meets ASPEN moderate calorie protein malnutrition criteria due to a loss of 13% body weight in 3 months and less than 75% of nutrition needs met for more than 1 month.'
Based on the above information and your assessment, which of the following most accurately represents the patient's nutritional status?
Moderate calorie protein malnutrition
Other
[place] Criteria (ACP Hospitalist 2017)
2 or more criteria must be present for either
non severe or severe malnutrition
Note that the criteria differs related to the
presence of an acute or chronic illness
Acute Illness Chronic Illness
Energy Intake Non Severe: <75% for >7 days Non Severe: <75% for >1 month
Severe: <50% for >5 days Severe: <75% for >1 month
Weight Loss Non Severe: 1-2% over 1 week Non Severe: 5% over 1 month
5% over 1 month 7.5% over 3 months
7.5% over 3 months 10% over 6 months
1 year N/A 20% over 1 year
Severe: >2% over 1 week Severe: >5% over 1 month
>5% over 1 month >7.5% over 3 months
>7.5% over 3 months >10% over 6 months
1 year N/A >20% over 1 year
Additional criteria that can be used to Determine if Mild or Moderate Malnutrition (Merck Manual 2018)
Use of terms such as suspected, likely, concern for, or probable (associated with a specific diagnosis that is being evaluated, monitored, or treated as if it exists) are acceptable and can be coded in the inpatient setting, when documented at the
time of discharge.
Thank you,
Rita Funez RN, BSN
CDI Specialist
Available via [facility] [employer]
Please use your independent medical judgment in providing your response.
[2024-04-20] MEDS: LOVENOX 40 MG SC (17:21)
[2024-04-21 03:41] VITALS: BP 129/80
[2024-04-21] MEDS: SYNTHROID 125 MCG PO (05:25)
[2024-04-21 06:35] LABS: Hematocrit 25.9 % (37.0-47.0); Hemoglobin 8.9 g/dL (12.0-16.0); Mean Corp Hgb Conc. 34.4 g/dL (33.0-37.0); Mean Corpuscular Hgb 31.7 pg (27.0-31.0); Mean Corpuscular Volume 92.2 fL (81.0-99.0); Mean Platelet Volume 9.4 fL (7.4-10.4); Platelet Count 367 10^3/uL (130-400); Red Blood Cell Count 2.81 10^6/uL (4.20-5.40)
[2024-04-21 07:04] LABS: Blood Urea Nitrogen < 2 mg/dl (7-17); Calcium 8.8 mg/dl (8.4-10.2); Carbon Dioxide 25 mmol/L (22-30); Chloride 102 mmol/L (98-107); Estimated Creatinine Clearance 76 ml/min; Glucose 98 mg/dl (70-99); Sodium 137 mmol/L (135-145); eGFR > 60.00
[2024-04-21 07:38] VITALS: BP 121/73
--- NOTE | 2024-04-21 08:39 | W.PN.HOSP.TC ---
Today's Communication/Plan
-
Discharge today
Assessment / Plan
Assessment / Plan
69y F with PMH significant for appendiceal carcinoma s/p recent HICP surgery at [facility] who presents to ED complaining of poor PO intake, N/V/D.
Post-Op Ileus
s/p HICAP Surgery 04/06/24
- Resolved, tolerating low residue
- Medically stable for discharge today
Iron deficiency anemia
-Hemoglobin 8.9 today was 10.3 upon admission
-Likely a component of dilution
-Started ferrous sulfate 325 mg Q48H - continue upon dc
Non-anion gap metabolic acidosis
-Resolved status post sodium bicarb
Hyponatremia
Hypokalemia
- Repleted and resolved
Appendiceal Carcinoma
- s/p two significant intra-abdominal surgeries in the past 6 months.
- Following at [facility] for further care.
- L ACW port is not to be used - for chemo only.
Benign Hypertension
- Stable. Continue losartan with holding parameters.
Hypothyroidism
- Stable. Continue T4 replacement.
Depression
- Stable. Continue Effexor.
Moderate calorie protein malnutrition
-Encourage oral intake
DVT Prophylaxis: SQ lovenox
Code Status: Full
Physical Exam
General: No acute distress
HEENT: Normocephalic, Atraumatic, EOMI, MMM
Respiratory: Clear to Auscultation bilaterally
Cardiac: Normal S1/S2, Regular Rate and Rhythm
GI: Soft, Normal Bowel Sounds, mild erica-incisional tenderness, incisions clean/dry/intact
Extremities: No Clubbing, Cyanosis, or Edema
Neuro: Nonfocal/Grossly Intact
Psych: Calm, Cooperative
Derm: No Visible lesions
Anticipated Discharge: Today
Subjective/Interval History
-
Date of Service: April 21, 2024
She has been tolerating her low residue diet. No nausea, no vomiting, no diarrhea. No abdominal pain. No fever.
Objective Data
-
Labs:
Laboratory Results
04/21/24
05:43
WBC 4.0 L
Hgb 8.9 L
Hct 25.9 L
Plt Count 367
Sodium 137
Potassium 4.0
Chloride 102
Carbon Dioxide 25
BUN < 2 L
Creatinine 0.5 L
Glucose 98
Calcium 8.8
Vital Signs:
Vital Signs
Temp Pulse Resp BP Pulse Ox
98.6 F 83 18 121/73 99
04/21/24 07:38 04/21/24 07:38 04/21/24 07:38 04/21/24 07:38 04/21/24 07:38
I&O
04/20/24 04/21/24 04/22/24
06:59 06:59 06:59
Intake Total 3000 / 3000 1480 / 1480
Balance 3000 / 3000 1480 / 1480
[2024-04-21] MEDS: SODIUM BICARBONATE PO (09:10)
[2024-04-21] MEDS: COZAAR 25 MG PO (09:11)
[2024-04-21] MEDS: EFFEXOR XR 150 MG PO (09:11)
[2024-04-21] MEDS: FEOSOL 325 MG PO (09:12)
[2024-04-21] MEDS: PROTONIX IV IV (09:12)
[2024-04-21] MEDS: NSS (PRESERVATIVE FREE) IV (09:12)
--- NOTE | 2024-04-21 11:21 | W.DCSUMMARY ---
Discharge Summary
Discharge Data
Date of Admission: 04/18/24
Date of Discharge: 04/21/24
-
Pending Results: No
Hospital Course
Discharge diagnosis:
Postoperative ileus
Iron deficiency anemia and
Non anion gap metabolic hypokalemia
Hyponatremia
Appendiceal carcinoma status post surgery
Benign hypertension
Hypothyroidism
Moderate protein calorie malnutrition
Depression
Obstruction series:
1. Mild air distention of bowel loops in the center of the abdomen which is probably a mild adynamic ileus given recent abdominal surgery.
2. No radiographic evidence for pneumoperitoneum.
3. Recent cholecystectomy and splenectomy.
4. Previous right hemicolectomy and sigmoidectomy.
5. 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
Hospital course:
69-year-old female with a past medical history of appendiceal cancer status post abdominal surgery on 04/06/2024 at [facility], discharged home on 04/12/2024, was admitted for nausea, vomiting, and diarrhea secondary to postoperative ileus. Patient received
conservative management with bowel rest, IV fluids.
Patient had hypokalemia, this was repleted and resolved. She also had non-anion gap metabolic acidosis due to diarrhea. She received sodium bicarb, this resolved.
Patient also had iron deficiency anemia, likely from subacute blood loss from her recent surgeries. Her hemoglobin was stable at 8.9 on the day of discharge. She will be discharged on oral iron supplements to be taken every 48 hours. She has been
counseled to increase her meat intake.
Patient was started on a clear liquid diet, and slowly advanced. She tolerated a low residue diet. She did not have any recurrence of nausea, vomiting, or diarrhea. She is medically stable for discharge. She needs to follow-up with her primary
care doctor in 1 week, and her surgeon as scheduled.
Disposition: Home self-care
Discharge planning: Required 41 minutes
Discharge Plan
-
Patient Disposition: Home (Routine Discharge)
Discharge Diagnosis/Procedures: Postoperative ileus, non-anion gap metabolic acidosis, iron deficiency anemia from recent surgery, hypokalemia, hyponatremia, appendiceal cancer
Condition: Good
Diet: Low Residue
Activity: As tolerated
Driving Restrictions: As prior to admission
Activity Restrictions/Additional Instructions:
Please follow-up with your primary care doctor in 1 week, and your surgeon as previously scheduled.
Referrals:
Delisa Yin NP [Family Provider] - in one week
Prescriptions:
New
ferrous sulfate [FeroSul] 325 mg (65 mg iron) Tablet
325 mg PO Q48H Qty: 30 0RF
Continued
venlafaxine [Effexor XR] 150 MG capsule,extended release 24hr
150 mg PO DAILY
losartan 25 mg tablet
25 mg PO DAILY
levothyroxine 125 mcg Tablet
125 mcg PO DAILY
ondansetron HCl 8 mg Tablet
8 mg PO Q8H PRN (Reason: n/v)
Lomotil tablet
2.5 mg PO 2XD PRN (Reason: Diarrhea)
Rx Instructions:
pt states pt takes when on chemo
Discharge Orders:
Discharge Patient (As Directed); Ordered 04/21/24
Ordered By: Jareth Zarco
Discharge Date and Time
Discharge Date/Time: 04/21/24 11:49
Print Language: SLOVENIAN
[2024-04-21 11:33] VITALS: BP 121/73
== END 2024-04-21 11:49 | disposition home or self-care (01) | DRG 394 ==
LOC: 2 SOUTH 20:47
PROVIDERS: Emergency Medicine; ADMITTING PHYSICIAN Hospitalist; ATTENDING PHYSICIAN Family Medicine; EMERGENCY PHYSICIAN Emergency Medicine; FAMILY PHYSICIAN Internal Medicine
DX: K91.89 Other postprocedural complications and disorders of digestive system (principal); C18.1 Malignant neoplasm of appendix; E44.0 Moderate protein-calorie malnutrition; E87.1 Hypo-osmolality and hyponatremia; K56.7 Ileus, unspecified; E87.20 Acidosis, unspecified; E87.6 Hypokalemia; I10 Essential (primary) hypertension; E03.9 Hypothyroidism, unspecified; F32.A Depression, unspecified; Z68.25 Body mass index [BMI] 25.0-25.9, adult
CPT/HCPCS: 74022; 80048; 80053; 82607; 82728; 82746; 83540; 83550; 83690; 83735; 84100; 85025; 85027; 87045; 87046; 87324; 87427; 87449; 96361; 96374; 96375; 97162; 97166; 99285

== ENCOUNTER → 2024-05-04 10:33 | Outpatient (REF) | payer MEDICARE, OTHER, SELFPAY ==
[2024-05-04 11:07] LABS: % Basophils 0.7 % (0-2); % Immature Granulocytes 0.2 % (0-0.5); % Lymphocytes 37.2 % (20.5-51.1); % Monocytes 9.4 % (1.7-9.3); % Neutrophils 50.5 % (42.2-75.2); Absolute Eosinophils 0.1 10^3/uL (0-0.7); Absolute Lymphocytes 2.1 10^3/uL (1.2-3.4); Absolute Monocytes 0.5 10^3/uL (0.1-0.6); Absolute Neutrophils 2.8 10^3/uL (1.4-6.5); Hematocrit 31.3 % (37.0-47.0); Hemoglobin 10.5 g/dL (12.0-16.0); Mean Corp Hgb Conc. 33.5 g/dL (33.0-37.0); Mean Corpuscular Hgb 32.3 pg (27.0-31.0); Mean Corpuscular Volume 96.3 fL (81.0-99.0); Nucleated Red Blood Cells % 0 %; Platelet Count 565 10^3/uL (130-400); Red Blood Cell Count 3.25 10^6/uL (4.20-5.40); Red Cell Dist. Width 13.5 % (11.5-14.5); White Blood Cell Count 5.5 10^3/uL (4.8-10.8)
[2024-05-04 12:19] LABS: ALT (SGPT) 22 U/L (0-35); AST (SGOT) 33 U/L (14-36); Albumin 4.1 g/dl (3.5-5.0); Alkaline Phosphatase 393 U/L (38-126); Blood Urea Nitrogen 8 mg/dl (7-17); Calcium 9.8 mg/dl (8.4-10.2); Carbon Dioxide 25 mmol/L (22-30); Chloride 103 mmol/L (98-107); Glucose 91 mg/dl (70-99); Iron 47 ug/dl (37-170); Potassium 5.1 mmol/L (3.5-5.1); Sodium 141 mmol/L (135-145); Total Bilirubin < 0.1 mg/dl (0.2-1.3); Total Protein 7.1 g/dl (6.3-8.2); eGFR > 60.00
[2024-05-04 12:29] LABS: Percent Saturation 19 % (20-50); Total Iron Binding Capacity 236 ug/dl (265-497)
[2024-05-04 12:54] LABS: Ferritin 72.5 ng/ml (11.1-264.0)
[2024-05-04 13:15] LABS: Free T4 0.67 ng/dl (0.78-2.19)
== END ==
LOC: REG 10:33
PROVIDERS: ATTENDING PHYSICIAN Internal Medicine Hematology & Oncology; FAMILY PHYSICIAN Internal Medicine
DX: R19.7 Diarrhea, unspecified (principal); E03.9 Hypothyroidism, unspecified; D64.9 Anemia, unspecified; R19.00 Intra-abdominal and pelvic swelling, mass and lump, unspecified site; K57.32 Diverticulitis of large intestine without perforation or abscess without bleeding; I10 Essential (primary) hypertension; C18.1 Malignant neoplasm of appendix; C79.60 Secondary malignant neoplasm of unspecified ovary
CPT/HCPCS: 36415; 80053; 82728; 83540; 83550; 84439; 84443; 85025

== ENCOUNTER → 2024-06-09 08:56 | Outpatient (REF) | payer MEDICARE, OTHER, SELFPAY ==
[2024-06-09 10:46] LABS: Hematocrit 37.9 % (37.0-47.0); Hemoglobin 12.7 g/dL (12.0-16.0); Mean Corp Hgb Conc. 33.5 g/dL (33.0-37.0); Mean Corpuscular Hgb 31.8 pg (27.0-31.0); Mean Corpuscular Volume 94.8 fL (81.0-99.0); Platelet Count 304 10^3/uL (130-400); White Blood Cell Count 20.9 10^3/uL (4.8-10.8)
[2024-06-09 11:03] LABS: ALT (SGPT) 17 U/L (0-35); AST (SGOT) 23 U/L (14-36); Albumin 4.4 g/dl (3.5-5.0); Alkaline Phosphatase 192 U/L (38-126); Blood Urea Nitrogen 12 mg/dl (7-17); Calcium 9.9 mg/dl (8.4-10.2); Carbon Dioxide 24 mmol/L (22-30); Chloride 103 mmol/L (98-107); Glucose 95 mg/dl (70-99); Iron 130 ug/dl (37-170); Magnesium 1.9 mg/dl (1.6-2.3); Potassium 4.2 mmol/L (3.5-5.1); Sodium 139 mmol/L (135-145); Total Bilirubin 0.2 mg/dl (0.2-1.3); Total Protein 6.8 g/dl (6.3-8.2); eGFR > 60.00
[2024-06-09 11:13] LABS: Percent Saturation 43 % (20-50); Total Iron Binding Capacity 301 ug/dl (265-497)
[2024-06-09 11:15] LABS: Urine Protein 6 mg/dl
[2024-06-09 11:21] LABS: % Basophils 0.2 % (0-2); % Eosinophils 1.2 % (0-6); % Immature Granulocytes 5.3 % (0-0.5); % Lymphocytes 18.2 % (20.5-51.1); % Neutrophils 66.1 % (42.2-75.2); Absolute Basophils 0.1 10^3/uL (0-0.2); Absolute Eosinophils 0.3 10^3/uL (0-0.7); Absolute Immature Granulocytes 1.1 10^3/uL (0-0.05); Absolute Lymphocytes 3.8 10^3/uL (1.2-3.4); Absolute Monocytes 1.9 10^3/uL (0.1-0.6); Absolute Neutrophils 13.8 10^3/uL (1.4-6.5); Mean Platelet Volume 10.2 fL (7.4-10.4); Nucleated Red Blood Cells % 0.3 %
== END ==
LOC: REG 08:56
PROVIDERS: ATTENDING PHYSICIAN Registered Nurse; FAMILY PHYSICIAN Internal Medicine
DX: R19.00 Intra-abdominal and pelvic swelling, mass and lump, unspecified site (principal); K57.32 Diverticulitis of large intestine without perforation or abscess without bleeding; I10 Essential (primary) hypertension; E03.9 Hypothyroidism, unspecified; C18.1 Malignant neoplasm of appendix; C79.60 Secondary malignant neoplasm of unspecified ovary; D50.8 Other iron deficiency anemias
CPT/HCPCS: 36415; 80053; 82570; 82728; 83540; 83550; 83735; 84156; 85025

== ENCOUNTER 2024-06-20 01:07 | Emergency (ER) | payer MEDICARE, OTHER, SELFPAY ==
[2024-06-20] VITALS (7 sets, daily range): BP systolic 115–148; BP diastolic 81–100; BMI 21.9
--- NOTE | 2024-06-20 01:19 | ED.GENMED ---
History of Present Illness
<ELDA Byrne - Last Filed: 06/20/24 03:39>
General
Chief Complaint: Abdominal Symptoms
Source: patient
Exam Limitations: none
Time Seen by Provider: 06/20/24 01:16
Nursing documentation reviewed up to this point in time: agreed with
History of Present Illness
History of Present Illness:
Pt is a 69 y/o F with PMH of cancer, abdominal mass, hypothyrodism, and ileus who presents today for nausea and vomiting that has been occurring since she last received chemotherapy on 06/13/24. She states it first started as mild nausea but has
vomited multiple times today and is now dry heaving. She states she has not had anything to eat since this morning and has Zofran but hasn't taken it because she is unable to keep anything down. She states she has some abdominal soreness and
attributes this to the multiple episodes of vomiting. Pt notes she has also had some diarrhea since receiving the chemo as well, but it has decreased in frequency. She denies BRADLEY, hematemesis, chest pain, palpitations, changes in color of urine,
hematochezia.
Past History
<ELDA Byrne - Last Filed: 06/20/24 03:39>
Past History
ED Past Medical History: Cancer, HTN, Hypothyroidism and Psychiatric (Depression)
ED Past Surgical History: Appendectomy, Bowel resection, Cholecystectomy, Gynecological, Orthopedic and Other (Polypectomy)
Social History
Tobacco: Non-smoker
Alcohol: Occasional
Drug: None
Personal:
Living: alone
Employment: Employed
Review of Systems
<ELDA Byrne - Last Filed: 06/20/24 03:39>
Review of Systems
Constitutional: Reports fatigue
EENT: Reports no symptoms
Respiratory: Reports no symptoms
Cardiac: Reports no symptoms
ABD/GI: Reports abdominal pain (soreness from wretching)
: Reports no symptoms
Musculoskeletal: Reports no symptoms
Skin: Reports no symptoms
Neurological: Reports no symptoms
Phy Exam
<Marry Kohler [facility] - Last Filed: 06/20/24 03:39>
General Physical Exam
General Presentation: mild distress
General Skin: warm and dry
General Habitus: elderly
General Mental: alert
General Hydration: dry mucous membranes
Cardiovascular Exam
Cardiovascular Exam: no gallop, no murmur and tachycardia
Pulmonary Exam
Pulmonary Exam: lungs clear and no respiratory distress
Gastrointestinal Exam
Gastrointestinal Exam: normal bowel sounds, non distended and tender (mildly tender to palpation of epigastric region)
Course
<Marry Kohler [facility] - Last Filed: 06/20/24 03:39>
Orders/Labs/Results
Orders:
Orders
06/20/24 01:44
Complete Blood Count/With Diff Urgent
Comprehensive Metabolic Panel Urgent
Lactic Acid Urgent
Lipase Urgent
Manual Differential Urgent
PTT Urgent
Prothrombin Time Urgent
06/20/24 01:46
EKG [Electrocardiogram (*1)] Urgent
Reason for Study: Abdominal Pain
06/20/24 02:15
0.9% Sodium Chloride 1000 ml [Nss] 1,000 ml IV BOLUS
06/20/24 03:39
Metoclopramide [Reglan] 10 mg IV NOW STA
06/20/24 05:16
Urinalysis Reflex To Culture Urgent
Date Specimen was Collected: 06/20/24
Time Specimen was Collected: 05:15
Abnormal Lab Results
06/20/24 06/20/24
01:44 05:16
WBC 14.2 H 10^3/uL
(4.8-10.8)
MCH 31.2 H pg
(27.0-31.0)
RDW 16.2 H %
(11.5-14.5)
MPV 10.5 H fL
(7.4-10.4)
Abs Neuts (Manual) 9.3 H 10^3/uL
(1.4-6.5)
Band Neutrophils 10 H %
(0-3)
PT 15.5 H Sec
(11.4-14.6)
Potassium 3.3 L mmol/L
(3.5-5.1)
Carbon Dioxide 17 L mmol/L
(22-30)
BUN 18 H mg/dl
(7-17)
Glucose 176 H mg/dl
(70-99)
Lactic Acid 2.8 H mmol/L
(0.7-2.0)
Alkaline Phosphatase 213 H U/L
(38-126)
Urine Ketones Trace A
(Negative)
06/20/24 01:44
06/20/24 01:44
Vital Signs
Initial and Last Documented VS:
Initial Vital Signs
Pulse Resp BP Pulse Ox
116 22 136/100 98
06/20/24 01:10 06/20/24 01:10 06/20/24 01:10 06/20/24 01:10
Last Documented Vital Signs
Temp Pulse Resp BP Pulse Ox
98.5 F 87 22 118/85 96
06/20/24 01:50 06/20/24 05:00 06/20/24 05:00 06/20/24 05:00 06/20/24 05:00
Erichlt;Brown Jon, DO - Last Filed: 06/20/24 05:40>
Orders/Labs/Results
Orders:
Orders
06/20/24 01:44
Complete Blood Count/With Diff Urgent
Comprehensive Metabolic Panel Urgent
Lactic Acid Urgent
Lipase Urgent
Manual Differential Urgent
PTT Urgent
Prothrombin Time Urgent
06/20/24 01:46
EKG [Electrocardiogram (*1)] Urgent
Reason for Study: Abdominal Pain
06/20/24 02:15
0.9% Sodium Chloride 1000 ml [Nss] 1,000 ml IV BOLUS
06/20/24 03:39
Metoclopramide [Reglan] 10 mg IV NOW STA
06/20/24 05:16
Urinalysis Reflex To Culture Urgent
Date Specimen was Collected: 06/20/24
Time Specimen was Collected: 05:15
Abnormal Lab Results
06/20/24 06/20/24
01:44 05:16
WBC 14.2 H 10^3/uL
(4.8-10.8)
MCH 31.2 H pg
(27.0-31.0)
RDW 16.2 H %
(11.5-14.5)
MPV 10.5 H fL
(7.4-10.4)
Abs Neuts (Manual) 9.3 H 10^3/uL
(1.4-6.5)
Band Neutrophils 10 H %
(0-3)
PT 15.5 H Sec
(11.4-14.6)
Potassium 3.3 L mmol/L
(3.5-5.1)
Carbon Dioxide 17 L mmol/L
(22-30)
BUN 18 H mg/dl
(7-17)
Glucose 176 H mg/dl
(70-99)
Lactic Acid 2.8 H mmol/L
(0.7-2.0)
Alkaline Phosphatase 213 H U/L
(38-126)
Urine Ketones Trace A
(Negative)
06/20/24 01:44
06/20/24 01:44
Vital Signs
Initial and Last Documented VS:
Initial Vital Signs
Pulse Resp BP Pulse Ox
116 22 136/100 98
06/20/24 01:10 06/20/24 01:10 06/20/24 01:10 06/20/24 01:10
Last Documented Vital Signs
Temp Pulse Resp BP Pulse Ox
98.5 F 87 22 118/85 96
06/20/24 01:50 06/20/24 05:00 06/20/24 05:00 06/20/24 05:00 06/20/24 05:00
<ELDA Byrne - Last Filed: 06/20/24 03:39>
MDM/Problems Addressed
Differential Diagnosis Includes:
adverse effect of chemotherapy, dehydration, small bowel obstruction
Chronic conditions affecting care: Previous abdomnial surgery, Immunosuppressed and Cancer
<ELDA Byrne - Last Filed: 06/20/24 03:39>
*EKG
Interpreted by ED Provider?: Yes
EKG Intrepretation Date: 06/20/24
EKG Intrepretation Time: 02:08
Interpretation: normal
Comparison EKG: no comparison EKG present
Heart Rate: 91
Rate: normal
Rhythm: sinus
[place]: normal axis
Interval: normal interval
QRS Pattern: normal QRS
Ischemia: no ischemia
*Critical Care Note
Total Time (30-74mins, 75-104mins- exclusive of procedures): Not Applicable
<Brown Jon DO - Last Filed: 06/20/24 05:40>
Update Note
Update Note:
Patient tolerated ice chips and liquids. Patient wishes to be discharged home. Discussed all lab work. Patient has no further questions at this time.
ED Attending Note
<ELDA Byrne - Last Filed: 06/20/24 03:39>
-
Portions of this chart may have been created with voice recognition software.� Occasional wrong word or��sound alike� substitutions may have occurred due to the inherent limitations of voice recognition software.
<Brown oJn DO - Last Filed: 06/20/24 05:40>
ED Attending Note
Patient seen and examined by attending physician: Yes
I performed the substantive portion of visit, reviewed & personally made and approve the management plan that is documented in note by myself or DANIEL.: Yes
ED Attending Note:
Pleasant 69-year-old female presents the emergency department with nausea, vomiting, and diarrhea with suspected dehydration. Patient states that she is receiving chemotherapy for appendicular cancer. Her last dose was June 13. She states
that her symptoms began shortly after her last chemotherapy session. Patient states that she vomited several times today but now she is dry heaving. She has not been able to eat anything for the last 3 days. Patient denies any blood in the emesis
or the diarrhea. Patient was seen in conjunction with the PA student. I have reviewed and agree with the history and treatment plan presented. On my independent physical exam, patient is awake, alert, and oriented x3, minimal acute distress. Dry
mucous membranes. Cracked and dry lips. Heart is regular rate and rhythm. 90s on the monitor. Lungs clear to auscultation bilaterally no wheezes rales or rhonchi. Abdomen is soft without tenderness to palpation. Moves all 4 extremities. Skin
is dry appearing.
Discharge Plan
Departure
Patient Disposition: Home (Routine Discharge)
Date of Disposition: 06/20/24
Time of Disposition: 05:39
Patient with high blood pressure during this ER visit?: Yes
Discharge Problem:
Nausea & vomiting
Prescriptions:
No Action
venlafaxine [Effexor XR] 150 MG capsule,extended release 24hr
150 mg PO DAILY
losartan 25 mg tablet
25 mg PO DAILY
levothyroxine 125 mcg Tablet
125 mcg PO DAILY
ondansetron HCl 8 mg Tablet
8 mg PO Q8H PRN (Reason: n/v)
Lomotil tablet
2.5 mg PO 2XD PRN (Reason: Diarrhea)
Rx Instructions:
pt states pt takes when on chemo
Referrals:
Delisa Yin NP [Family Provider] -
Interventions
Interventions:
*Risk Screen - Suicide Last Done: 06/20/24 01:10
*General Assessment Last Done: 06/20/24 01:20
*Neglect/Abuse Screening Last Done: 06/20/24 01:10
*ED COVID-19 Vaccine History Last Done: 06/20/24 01:20
AD-Tpenom-Lhsrsmrxvs Assessment Last Done: 06/20/24 01:33
Discharge Date and Time
Print Language: HEBREW
--- NOTE | 2024-06-20 01:24 | EDRN ---
Pt had chemo Thursday for cancer of her appendix. Thursday pt started with nausea and vomiting which she has had every day since. Pt says symptoms have worsened and she is unable to keep anything down. Pt has some sob. weakness and lower abd pain.
Pt has diarrhea - last episode 2199. No fever/chills/cough, cp, constipation, urinary symptoms, dizziness.
[2024-06-20 01:58] LABS: Hematocrit 40.9 % (37.0-47.0); Hemoglobin 13.9 g/dL (12.0-16.0); Mean Corpuscular Hgb 31.2 pg (27.0-31.0); Mean Corpuscular Volume 91.7 fL (81.0-99.0); Mean Platelet Volume 10.5 fL (7.4-10.4); Platelet Count 167 10^3/uL (130-400); Red Blood Cell Count 4.46 10^6/uL (4.20-5.40); Red Cell Dist. Width 16.2 % (11.5-14.5); White Blood Cell Count 14.2 10^3/uL (4.8-10.8)
[2024-06-20 02:04] LABS: APTT 24.4 Sec (23.4-35.0); PT 15.5 Sec (11.4-14.6)
[2024-06-20 02:13] LABS: Lactic Acid 2.8 mmol/L (0.7-2.0)
[2024-06-20 02:14] LABS: ALT (SGPT) 23 U/L (0-35); AST (SGOT) 19 U/L (14-36); Albumin 4.8 g/dl (3.5-5.0); Alkaline Phosphatase 213 U/L (38-126); Blood Urea Nitrogen 18 mg/dl (7-17); Calcium 9.4 mg/dl (8.4-10.2); Carbon Dioxide 17 mmol/L (22-30); Chloride 101 mmol/L (98-107); Estimated Creatinine Clearance 76 ml/min; Glucose 176 mg/dl (70-99); Lipase 29 U/L (23-300); Potassium 3.3 mmol/L (3.5-5.1); Sodium 136 mmol/L (135-145); Total Bilirubin 0.9 mg/dl (0.2-1.3); Total Protein 7.5 g/dl (6.3-8.2); eGFR > 60.00
[2024-06-20] MEDS: NSS 1000 IV (02:18)
[2024-06-20 02:20] LABS: Absolute Neutrophils -Man Diff 9.3 10^3/uL (1.4-6.5); Band Neutrophils 10 % (0-3); Lymphocytes 30 % (20-51); Monocytes 4 % (2-9); Normal RBC Morphology No; Platelets Checked Yes; Segmented Neutrophils 56 % (42-75); Total Cells Counted 100
[2024-06-20 02:21] LABS: Howell Jolly Bodies 1+
[2024-06-20 02:22] LABS: Toxic Granulation 1+
[2024-06-20 02:23] LABS: Anisocytosis 1+; Target Cells Occasional
[2024-06-20 02:24] LABS: Burr Cells Occasional; Ovalocytes Occasional
--- NOTE | 2024-06-20 03:10 | EDRN ---
Pt says she feels a little better after IVF but she still has nausea. Informed pt will let Dr Jon know - Dr Jon informed.
[2024-06-20] MEDS: REGLAN 10 MG IV (03:43)
[2024-06-20 05:30] LABS: Urine Albumin Trace (Neg - Trace); Urine Bilirubin Negative (Negative); Urine Character Clear (Clear); Urine Color Yellow; Urine Glucose Negative (Negative); Urine Ketone Trace (Negative); Urine Leukocyte Negative (Negative); Urine Nitrite Negative (Negative); Urine Occult Blood Negative (Negative); Urine Urobilinogen Negative (Neg - 1+)
== END 2024-06-20 06:10 | disposition home or self-care (01) ==
LOC: EMR 01:07
PROVIDERS: EMERGENCY PHYSICIAN Student in an Organized Health Care Education/Training Program; FAMILY PHYSICIAN Internal Medicine
DX: R11.2 Nausea with vomiting, unspecified (principal); C18.1 Malignant neoplasm of appendix; Z79.899 Other long term (current) drug therapy; I10 Essential (primary) hypertension; E03.9 Hypothyroidism, unspecified; Z90.49 Acquired absence of other specified parts of digestive tract
CPT/HCPCS: 96374; 96361; 99284; 80053; 81003; 83605; 83690; 85025; 85610; 85730; 93005

== ENCOUNTER → 2024-08-27 07:33 | Outpatient (REF) | payer MEDICARE, OTHER, SELFPAY ==
[2024-08-27 08:41] LABS: Blood Urea Nitrogen 12 mg/dl (7-17); Calcium 9.9 mg/dl (8.4-10.2); Carbon Dioxide 26 mmol/L (22-30); Chloride 98 mmol/L (98-107); Glucose 98 mg/dl (70-99); Potassium 3.8 mmol/L (3.5-5.1); Sodium 138 mmol/L (135-145); eGFR > 60.00
== END ==
LOC: REG 07:33
PROVIDERS: ATTENDING PHYSICIAN Internal Medicine
DX: C18.1 Malignant neoplasm of appendix (principal)
CPT/HCPCS: 36415; 80048

== ENCOUNTER → 2024-08-29 13:31 | Outpatient (REF) | payer MEDICARE, OTHER, SELFPAY | LOC: RAD 13:31 | PROVIDERS: ATTENDING PHYSICIAN Registered Nurse; FAMILY PHYSICIAN Internal Medicine | DX: R19.00 Intra-abdominal and pelvic swelling, mass and lump, unspecified site (principal); K57.32 Diverticulitis of large intestine without perforation or abscess without bleeding; I10 Essential (primary) hypertension; E03.9 Hypothyroidism, unspecified; C79.60 Secondary malignant neoplasm of unspecified ovary; D50.8 Other iron deficiency anemias | CPT/HCPCS: 71260; 74177; Q9967 ==

== ENCOUNTER → 2024-09-30 09:29 | Outpatient (REF) | payer MEDICARE, OTHER, SELFPAY ==
[2024-09-30 10:48] LABS: Vitamin D, 25-OH*** 53.5 ng/mL (30-80)
[2024-09-30 11:02] LABS: TSH Reflex To Free T4 < 0.02 uIU/ml (0.47-4.68)
[2024-09-30 11:33] LABS: Free T4 1.09 ng/dl (0.78-2.19)
== END ==
LOC: REG 09:29
PROVIDERS: ATTENDING PHYSICIAN Internal Medicine
DX: E03.9 Hypothyroidism, unspecified (principal); E55.9 Vitamin D deficiency, unspecified
CPT/HCPCS: 36415; 82306; 84439; 84443

== ENCOUNTER → 2024-12-05 07:30 | Outpatient (REF) | payer MEDICARE, OTHER, SELFPAY ==
[2024-12-05 08:35] LABS: Hematocrit 40.3 % (37.0-47.0); Hemoglobin 13.8 g/dL (12.0-16.0); Mean Corp Hgb Conc. 34.2 g/dL (33.0-37.0); Mean Corpuscular Hgb 32.8 pg (27.0-31.0); Mean Corpuscular Volume 95.7 fL (81.0-99.0); Mean Platelet Volume 10.1 fL (7.4-10.4); Platelet Count 302 10^3/uL (130-400); Red Blood Cell Count 4.21 10^6/uL (4.20-5.40); Red Cell Dist. Width 13.5 % (11.5-14.5); White Blood Cell Count 5.7 10^3/uL (4.8-10.8)
[2024-12-05 09:12] LABS: ALT (SGPT) 80 U/L (0-35); AST (SGOT) 74 U/L (14-36); Albumin 4.5 g/dl (3.5-5.0); Alkaline Phosphatase 77 U/L (38-126); Blood Urea Nitrogen 17 mg/dl (7-17); Calcium 10.1 mg/dl (8.4-10.2); Carbon Dioxide 30 mmol/L (22-30); Chloride 105 mmol/L (98-107); Glucose 92 mg/dl (70-99); Potassium 5.3 mmol/L (3.5-5.1); Sodium 140 mmol/L (135-145); Total Bilirubin 0.6 mg/dl (0.2-1.3); Total Protein 7.4 g/dl (6.3-8.2); eGFR > 60.00
[2024-12-05 09:57] LABS: % Basophils 1.2 % (0-2); % Eosinophils 1.9 % (0-6); % Lymphocytes 53.3 % (20.5-51.1); % Monocytes 10.1 % (1.7-9.3); % Neutrophils 33.5 % (42.2-75.2); Absolute Basophils 0.1 10^3/uL (0-0.2); Absolute Eosinophils 0.1 10^3/uL (0-0.7); Absolute Lymphocytes 3.1 10^3/uL (1.2-3.4); Absolute Monocytes 0.6 10^3/uL (0.1-0.6); Absolute Neutrophils 1.9 10^3/uL (1.4-6.5); Nucleated Red Blood Cells % 0 %
[2024-12-05 11:47] LABS: CEA 3.37 ng/ml
== END ==
LOC: REG 07:30
PROVIDERS: ATTENDING PHYSICIAN Internal Medicine Hematology & Oncology; FAMILY PHYSICIAN Internal Medicine
DX: R19.00 Intra-abdominal and pelvic swelling, mass and lump, unspecified site (principal); K57.32 Diverticulitis of large intestine without perforation or abscess without bleeding; I10 Essential (primary) hypertension; E03.9 Hypothyroidism, unspecified; C18.1 Malignant neoplasm of appendix; C79.60 Secondary malignant neoplasm of unspecified ovary; D50.8 Other iron deficiency anemias
CPT/HCPCS: 36415; 80053; 82378; 85025

== ENCOUNTER → 2024-12-26 07:19 | Outpatient (REF) | payer MEDICARE, OTHER, SELFPAY ==
[2024-12-26 09:47] LABS: Free T4 0.48 ng/dl (0.78-2.19)
[2024-12-26 10:30] LABS: ALT (SGPT) 30 U/L (0-35); AST (SGOT) 27 U/L (14-36); Albumin 4.7 g/dl (3.5-5.0); Alkaline Phosphatase 58 U/L (38-126); Direct Bilirubin 0.1 mg/dl (0.0-0.4); Total Bilirubin 0.6 mg/dl (0.2-1.3); Total Protein 7.4 g/dl (6.3-8.2)
== END ==
LOC: REG 07:19
PROVIDERS: ATTENDING PHYSICIAN Registered Nurse; FAMILY PHYSICIAN Internal Medicine
DX: R19.00 Intra-abdominal and pelvic swelling, mass and lump, unspecified site (principal); K57.32 Diverticulitis of large intestine without perforation or abscess without bleeding; I10 Essential (primary) hypertension; E03.9 Hypothyroidism, unspecified; C18.1 Malignant neoplasm of appendix; C79.60 Secondary malignant neoplasm of unspecified ovary; D50.8 Other iron deficiency anemias
CPT/HCPCS: 36415; 80076; 84439; 84443

== ENCOUNTER → 2025-03-08 06:43 | Outpatient (REF) | payer MEDICARE, OTHER, SELFPAY ==
[2025-03-08 08:32] LABS: Hematocrit 38.5 % (37.0-47.0); Hemoglobin 12.6 g/dL (12.0-16.0); Mean Corp Hgb Conc. 32.7 g/dL (33.0-37.0); Mean Corpuscular Volume 98.2 fL (81.0-99.0); Platelet Count 306 10^3/uL (130-400); Red Cell Dist. Width 14.0 % (11.5-14.5)
[2025-03-08 09:21] LABS: ALT (SGPT) 26 U/L (0-35); AST (SGOT) 29 U/L (14-36); Albumin 4.5 g/dl (3.5-5.0); Alkaline Phosphatase 54 U/L (38-126); Blood Urea Nitrogen 23 mg/dl (7-17); Calcium 9.7 mg/dl (8.4-10.2); Carbon Dioxide 26 mmol/L (22-30); Chloride 108 mmol/L (98-107); Glucose 93 mg/dl (70-99); Potassium 5.3 mmol/L (3.5-5.1); Sodium 140 mmol/L (135-145); Total Protein 7.2 g/dl (6.3-8.2); eGFR > 60.00
[2025-03-08 09:57] LABS: Nucleated Red Blood Cells % 0 %
[2025-03-08 10:31] LABS: CEA 3.47 ng/ml
== END ==
LOC: REG 06:43
PROVIDERS: ATTENDING PHYSICIAN Internal Medicine Hematology & Oncology; FAMILY PHYSICIAN Internal Medicine
DX: R19.00 Intra-abdominal and pelvic swelling, mass and lump, unspecified site (principal); K57.32 Diverticulitis of large intestine without perforation or abscess without bleeding; I10 Essential (primary) hypertension; E03.9 Hypothyroidism, unspecified; C18.1 Malignant neoplasm of appendix; C79.60 Secondary malignant neoplasm of unspecified ovary; D50.8 Other iron deficiency anemias
CPT/HCPCS: 36415; 80053; 82378; 84443; 85025

== ENCOUNTER → 2025-03-13 07:31 | Outpatient (REF) | payer MEDICARE, OTHER, SELFPAY | LOC: RAD 07:31 | PROVIDERS: ATTENDING PHYSICIAN Internal Medicine Hematology & Oncology; FAMILY PHYSICIAN Internal Medicine | DX: C18.1 Malignant neoplasm of appendix (principal); C79.60 Secondary malignant neoplasm of unspecified ovary; R19.00 Intra-abdominal and pelvic swelling, mass and lump, unspecified site; K57.32 Diverticulitis of large intestine without perforation or abscess without bleeding; I10 Essential (primary) hypertension; E03.9 Hypothyroidism, unspecified; D50.8 Other iron deficiency anemias | CPT/HCPCS: 71260; 74177; Q9967 ==

== ENCOUNTER 2025-05-10 06:09 | Day surgery (SDC) | payer MEDICARE, OTHER, SELFPAY ==
[2025-05-10 06:56] VITALS: BMI 23.5
[2025-05-10 06:57] VITALS: BP 104/71; BMI 23.5
[2025-05-10] MEDS: TYLENOL 1000 MG PO (07:04)
[2025-05-10] MEDS: CELEBREX 200 MG PO (07:04)
[2025-05-10] MEDS: NORMOSOL-R/PLASMALYTE-A 1000 IV (07:11)
[2025-05-10 08:18] VITALS: BP 99/56
--- NOTE | 2025-05-10 08:18 | W.IMMPOSTOP ---
Addendum entered and electronically signed by Brown Calix MD 05/10/25 08:33:
left voicemail on Shanae's phone
Original Note:
Surgical Immed Post Op Note
-
Primary Surgeon: Brown Calix MD
Assisting Surgeon: none
Pre-op Diagnosis: appendiceal cancer, h/o mediport placement
Post-op Diagnosis: appendiceal cancer,m h/o mediport placement
Procedure Performed: mediport removal
Anesthesia Type: sedation with local
Specimen / Cultures: none
Estimated Blood Loss: 2mL
Complications: none
Operative Findings: uneventful port removal
--- NOTE | 2025-05-10 08:20 | OR.RPT ---
Operative Report
Operative Report
DATE OF OPERATION: 05/10/2025
SURGEON: Brown Calix MD
PREOPERATIVE DIAGNOSIS: Appendiceal cancer, history of port placement
POSTOPERATIVE DIAGNOSIS: Appendiceal cancer, history of port placement
OPERATION: Mediport removal
ASSISTANTS:
1. None
ANESTHESIA: Sedation with local
ESTIMATED BLOOD LOSS: 2 mL
FINDINGS:
1. No bleeding upon removal of port
SPECIMENS:
1. None
DRAINS: None
COMPLICATIONS: No immediate complications.
INDICATIONS: The patient is a 70-year-old female who was found to have appendiceal cancer after robotic converted to open right hemicolectomy with KRISTY/BSO. She underwent adjuvant chemotherapy followed by cytoreductive surgery with HIPEC. The
patient has done well and has shown no evidence of disease. Therefore, her oncologist recommended port removal. The operation was discussed with the patient in detail, including the risks, benefits and alternatives. Risks described included, but
not limited to, bleeding, infection, inability to remove and anesthetic risks. The patient understood and agreed to proceed.
PROCEDURE IN DETAIL: The patient was taken to the operating room and placed on the operating table in supine position. Sequential compression devices were placed bilaterally. Sedation was commenced. The patient's arms were tucked bilaterally. IV
clindamycin was given preincision. The abdomen was prepped and draped in a sterile fashion. A time-out was performed verifying the correct patient, procedure, operative site, positioning, and special equipment.
10 mL of 1% lidocaine with epinephrine was injected under the prior port scar and around the port pocket. Using a 15 blade scalpel, an incision was made through the prior port incision in the left upper chest. This was taken down to the
subcutaneous tissues with electrocautery. Hemostasis was assured. The port was dissected from its capsule. The Prolene stitches were cut. Holding pressure under the left clavicle at the insertion of the catheter, the port and catheter were
removed. The tip was noted to be intact. Pressure was held for 5 minutes. No bleeding was noted from the catheter tunnel. The subcutaneous tissue was irrigated. The capsule was cauterized. Hemostasis was assured.
The remaining 10 mL of 1% lidocaine were epinephrine were injected around the incision. The incision was closed in layers. 2-0 Vicryl interrupted stitches were placed in a deep dermal fashion. 4-0 Monocryl was used in a running subcuticular
fashion. The incision was dressed with Dermabond.
At this point, the procedure was complete. The patient was awoken. All needle, sponge and instrument counts were reported as correct. The patient tolerated the procedure well and was transferred to the recovery room in stable condition.
DICTATED BY: Brown Calix MD
[2025-05-10 08:30] VITALS: BP 107/59
[2025-05-10 08:45] VITALS: BP 96/53
[2025-05-10 09:00] VITALS: BP 97/61
== END 2025-05-10 09:15 | disposition home or self-care (01) ==
LOC: SDS 06:09
PROVIDERS: ATTENDING PHYSICIAN Surgery
DX: C18.1 Malignant neoplasm of appendix (principal); Z92.21 Personal history of antineoplastic chemotherapy
CPT/HCPCS: 36590

== ENCOUNTER → 2025-06-05 07:30 | Outpatient (REF) | payer MEDICARE, OTHER, SELFPAY ==
[2025-06-05 08:08] LABS: Hematocrit 41.3 % (37.0-47.0); Hemoglobin 13.6 g/dL (12.0-16.0); Mean Corp Hgb Conc. 32.9 g/dL (33.0-37.0); Mean Corpuscular Volume 95.2 fL (81.0-99.0); Nucleated Red Blood Cells % 0 %; Platelet Count 334 10^3/uL (130-400); Red Cell Dist. Width 13.1 % (11.5-14.5)
[2025-06-05 08:43] LABS: ALT (SGPT) 30 U/L (0-35); AST (SGOT) 31 U/L (14-36); Albumin 4.6 g/dl (3.5-5.0); Alkaline Phosphatase 57 U/L (38-126); Blood Urea Nitrogen 15 mg/dl (7-17); Calcium 10.3 mg/dl (8.4-10.2); Carbon Dioxide 27 mmol/L (22-30); Chloride 105 mmol/L (98-107); Glucose 101 mg/dl (70-99); Potassium 5.2 mmol/L (3.5-5.1); Sodium 140 mmol/L (135-145); Total Protein 7.4 g/dl (6.3-8.2); eGFR > 60.00
[2025-06-05 09:05] LABS: CEA 3.29 ng/ml
== END ==
LOC: REG 07:30
PROVIDERS: ATTENDING PHYSICIAN Internal Medicine Hematology & Oncology; FAMILY PHYSICIAN Internal Medicine
DX: R19.00 Intra-abdominal and pelvic swelling, mass and lump, unspecified site (principal); K57.32 Diverticulitis of large intestine without perforation or abscess without bleeding; I10 Essential (primary) hypertension; E03.9 Hypothyroidism, unspecified; C18.1 Malignant neoplasm of appendix; C79.60 Secondary malignant neoplasm of unspecified ovary; D50.8 Other iron deficiency anemias
CPT/HCPCS: 36415; 80053; 82378; 85025